=== PATIENT | male | born 1950 | race Caucasian/White ===

== ENCOUNTER 2016-08-26 08:30 | Day surgery (SDC) | payer OTHER ==
[~2016-08-26 08:30] MED LIST: DIPHENHYDRAMINE HCL 50 MG/ML VIAL ONE; EPINEPHRINE INJ 1 MG/10 ML DISP.SYRIN ONE; FLUMAZENIL INJ 0.5 MG/5 ML VIAL IV ONE; GLUCAGON,HUMAN RECOMB 1 MG INJ ONE; MIDAZOLAM 2 MG/2 ML INJ ONE; NALOXONE HCL INJ/PF 0.4 MG/1 ML SDV ONE; ONDANSETRON HCL INJ/PF 4 MG/2 ML SDV ONE; PROMETHAZINE HCL INJ 25 MG/1 ML VIAL ONE
[2016-08-26] MEDS: FENTANYL CITRATE INJ/PF 100 MCG/2 ML AMPUL ONE ×2 (09:07→09:09)
--- NOTE | 2016-08-26 09:14 | Operative Report ---
Operative Report DATE OF SURGERY: 08/26/16 Operative Report: The risks benefits and alternatives of the procedure explained to the patient in detail and informed consent is obtained that GIF Olympus video scope was inserted into the patient's mouth and hypopharynx the esophagus is identified intubated and insufflated the scope was then advanced through the esophagus stomach and duodenum retroflexion maneuver is done the esophagus stomach and first and second portions of the duodenum examined PREOPERATIVE DIAGNOSIS: Epigastric pain POSTOPERATIVE DIAGNOSIS: Gastritis. Duodenitis OPERATION: EGD with biopsy SURGEON: AL NICHOLAS ANESTHESIA: Moderate Sedation - 2 mg of Versed, 75 g of fentanyl. TISSUE REMOVED OR ALTERED: Gastric specimens obtained rule out Helicobacter pylori COMPLICATIONS: None. ESTIMATED BLOOD LOSS: none. INTRAOPERATIVE FINDINGS: Normal esophagus. Gastritis. Duodenitis PROCEDURE: Patient tolerated the procedure well. No immediate postprocedure complications are noted. Patient is discharged in good condition. Discharge date 08/26/2016. Discharge diet: Regular. Discharge activity: Regular. Patient has a 2-3 week follow-up to discuss findings. Patient is instructed to go to emergency room should there be any further problems or questions. We'll await on biopsies and treat if necessary
[2016-08-26 10:17] VITALS: BP 100/70
== END 2016-08-26 10:20 | disposition home or self-care (01) ==
LOC: END 08:30
PROVIDERS: ATTEND Internal Medicine Gastroenterology
PROC: 0DB68ZX Excision of Stomach, Via Natural or Artificial Opening Endoscopic, Diagnostic (ICD-10-PCS; principal; 2016-08-26 09:00)
DX: K31.9 Disease of stomach and duodenum, unspecified (principal); Z79.899 Other long term (current) drug therapy; Z79.51 Long term (current) use of inhaled steroids; Z88.0 Allergy status to penicillin; Z88.7 Allergy status to serum and vaccine
CPT/HCPCS: 43239; 88342 ×2; 88305 ×2; J2250; J3010; J0171; J1200; J1610; J2310; J2405; J2550; J3490

== ENCOUNTER 2016-12-22 06:47 | Day surgery (SDC) | payer OTHER, MEDICAID ==
[~2016-12-22 06:47] MED LIST changes: +ALBUTEROL SULFATE 0.083% NEB 2.5 MG/3 ML AMPUL NEB PRN; -DIPHENHYDRAMINE HCL 50 MG/ML VIAL ONE; -EPINEPHRINE INJ 1 MG/10 ML DISP.SYRIN ONE; -FLUMAZENIL INJ 0.5 MG/5 ML VIAL IV ONE; -GLUCAGON,HUMAN RECOMB 1 MG INJ ONE; +LIDOCAINE 4% INJ/PF (40 MG/ML) 5 ML AMPUL NEB PRN; -MIDAZOLAM 2 MG/2 ML INJ ONE; -NALOXONE HCL INJ/PF 0.4 MG/1 ML SDV ONE; +NORMAL SALINE 1000 ML 1,000 ML IV PRN; -ONDANSETRON HCL INJ/PF 4 MG/2 ML SDV ONE; -PROMETHAZINE HCL INJ 25 MG/1 ML VIAL ONE
[2016-12-22 07:17] LABS: ABSOLUTE BASOPHILS # (AUTO) 0.1 10^3/uL (0.0-0.2); ABSOLUTE EOSINOPHILS # (AUTO) 0.4 10^3/uL (0.0-0.6); ABSOLUTE LYMPHOCYTES (AUTO) 4.6 10^3/uL (0.5-4.7); ABSOLUTE MONOCYTES (AUTO) 0.7 10^3/uL (0.1-1.4); ABSOLUTE NEUT (AUTO) 4.1 10^3/uL (1.7-8.2); BASOPHILS % (AUTO) 0.7 % (0-2); EOSINOPHILS % (AUTO) 3.8 % (0-6); HEMATOCRIT 42.7 % (37.9-51.0); HEMOGLOBIN 14.3 g/dL (13.5-17.0); HGB HCT DIFFERENCE 0.2; LYMPHOCYTES % (AUTO) 46.4 % (13-45); MEAN CORPUSCULAR HEMOGLOBIN 31.7 pg (27.0-33.4); MEAN CORPUSCULAR HGB CONC 33.5 g/dL (32.0-36.0); MEAN CORPUSCULAR VOLUME 95 fl (80-97); MONOCYTES % (AUTO) 7.5 % (3-13); RED BLOOD COUNT 4.51 10^6/uL (4.35-5.55); RED CELL DISTRIBUTION WIDTH 13.6 % (11.5-14.0); SEGMENTED NEUTROPHILS % (AUTO) 41.6 % (42-78); WHITE BLOOD COUNT 9.9 10^3/uL (4.0-10.5)
[2016-12-22 07:23] LABS: PARTIAL THROMBOPLASTIN TIME 29.6 SEC (23.5-35.8)
[2016-12-22 07:38] LABS: ANION GAP 13 (5-19); BLOOD UREA NITROGEN 22 mg/dL (7-20); CARBON DIOXIDE 23 mmol/L (22-30); CHLORIDE 110 mmol/L (98-107); CREATININE RESULT 0.77 mg/dL (0.52-1.25); GLUCOSE 110 mg/dL (75-110); SODIUM 146.3 mmol/L (137-145)
[2016-12-22] MEDS ORDERED: LIDOCAINE 2% INJ (20 MG/ML) 20 ML MDV ONE (08:37)
[2016-12-22] MEDS ORDERED: MIDAZOLAM 2 MG/2 ML INJ ONE (09:00)
[2016-12-22] MEDS ORDERED: FENTANYL CITRATE INJ/PF 100 MCG/2 ML AMPUL ONE ×2 (09:00)
[2016-12-22] MEDS ORDERED: ONDANSETRON HCL INJ/PF 4 MG/2 ML SDV ONE (09:00)
[2016-12-22] MEDS ORDERED: EPHEDRINE SULFATE INJ 50 MG/1 ML AMPULE ONE (09:00)
[2016-12-22] MEDS ORDERED: PROPOFOL INJ 200 MG/20 ML VIAL IV ONE (09:00)
--- NOTE | 2016-12-22 11:01 | Operative Report ---
Operative Report DATE OF SURGERY: 12/22/16 Operative Report: patient NPO 12 hrs prior to procedure preop area iv established ,consents reviewed.bronchoscopy suite intubated per anesthesia T sized Olympic scopeno abnormalities of distal trachea,raymond,R main stem ,RULof the lung ,bronchus intermedius,RMLof the lung and RLL of the lung,Sub-mucosal swelling in L Main stem posteriorly as well as the AUGIE of the lung.Lingula and L lower lobe of the lung.Bronchoalveolar lavage and needle biopsy of L U lobe of the lung.Transbronchial biopsy under fluoroscopy L lower lobe of the lung.Patient tolerated procedure well SAO2 95% CXR pending PREOPERATIVE DIAGNOSIS: l lung mass POSTOPERATIVE DIAGNOSIS: same OPERATION: fiberoptic bronchoscopy/bronchoalveolar lavage/transbronchial biopsy/ Shah needle biopsy SURGEON: HAROLDO BAÑUELOS ANESTHESIA: GA TISSUE REMOVED OR ALTERED: AUGIE LAVAGE. AUGIE Shha Needle. LLL transbronchial biopsy COMPLICATIONS: none ESTIMATED BLOOD LOSS: 0 ml INTRAOPERATIVE FINDINGS: submucosal swelling AUGIE,corrugated mucosa
[2016-12-22] MEDS ORDERED: MEPERIDINE HCL/PF INJ 25 MG/1 ML DISP.SYRIN IV PRN (11:24)
[2016-12-22] MEDS ORDERED: FENTANYL CITRATE INJ/PF 100 MCG/2 ML AMPUL IV PRN ×3 (11:24)
[2016-12-22] MEDS ORDERED: PROMETHAZINE HCL INJ 25 MG/1 ML VIAL IV PRN (11:24)
[2016-12-22] MEDS ORDERED: DIPHENHYDRAMINE HCL 50 MG/ML VIAL IV PRN (11:24)
[2016-12-22 12:43] LABS: FLUID APPEARANCE TURBID; FLUID TYPE BRONCHIAL WASH
[2016-12-22 12:44] LABS: FLUID RBC DILUENT USED SALINE; FLUID RBC DILUTION FACTOR 51; FLUID RBC SIDE 1 216; FLUID RBC SIDE 2 204; TOTAL RBC SQUARES COUNTED FLD 25
[2016-12-22] MEDS ORDERED: NEOSTIGMINE METHYLSULFATE 10 MG/10 ML VIAL ONE (13:20)
[2016-12-22] MEDS ORDERED: SUCCINYLCHOLINE CHLORIDE INJ 200 MG/10 ML VIAL ONE (13:20)
[2016-12-22] MEDS ORDERED: GLYCOPYRROLATE INJ 0.4 MG/2 ML VIAL ONE (13:20)
[2016-12-22] MEDS ORDERED: ROCURONIUM BROMIDE INJ 50 MG/5 ML VIAL IV ONE (13:20)
[2016-12-22 13:39] VITALS: BP 96/61
[2016-12-22] MEDS ORDERED: ACETAMINOPHEN 325 MG TABLET PO SCH (14:00)
== END 2016-12-22 13:20 | disposition home or self-care (01) ==
LOC: OROUT 06:47
PROVIDERS: ATTEND Internal Medicine Pulmonary Disease
PROC: 0BBJ8ZX Excision of Left Lower Lung Lobe, Via Natural or Artificial Opening Endoscopic, Diagnostic (ICD-10-PCS; principal; 2016-12-22 09:15)
PROC: 0BBC8ZX Excision of Right Upper Lung Lobe, Via Natural or Artificial Opening Endoscopic, Diagnostic (ICD-10-PCS; 2016-12-22 09:15)
DX: R91.1 Solitary pulmonary nodule (principal); J44.9 Chronic obstructive pulmonary disease, unspecified; F17.210 Nicotine dependence, cigarettes, uncomplicated; Z79.899 Other long term (current) drug therapy; Z79.51 Long term (current) use of inhaled steroids; Z88.0 Allergy status to penicillin; Z88.7 Allergy status to serum and vaccine
CPT/HCPCS: 31628; 31629; 31624; 36415; 87070; 87205; 87206; 87116; 87101; 85025; 85610; 85730; 89050; 80048; 87015; 88162; 88305 ×2; 71010; 94640; J2250; J3490; J3010; J0330; J2405; J2704; 520

== ENCOUNTER → 2017-04-26 | Outpatient (CLI) | payer MEDICARE, MEDICAID ==
[2017-04-26 09:52] LABS: ABSOLUTE EOSINOPHILS # (AUTO) 0.4 10^3/uL (0.0-0.6); ABSOLUTE LYMPHOCYTES (AUTO) 3.1 10^3/uL (0.5-4.7); ABSOLUTE MONOCYTES (AUTO) 0.6 10^3/uL (0.1-1.4); BASOPHILS % (AUTO) 0.6 % (0-2); EOSINOPHILS % (AUTO) 5.3 % (0-6); HEMATOCRIT 44.3 % (37.9-51.0); HEMOGLOBIN 15.1 g/dL (13.5-17.0); LYMPHOCYTES % (AUTO) 43.5 % (13-45); MEAN CORPUSCULAR HEMOGLOBIN 32.7 pg (27.0-33.4); MEAN CORPUSCULAR HGB CONC 34.1 g/dL (32.0-36.0); MEAN CORPUSCULAR VOLUME 96 fl (80-97); MONOCYTES % (AUTO) 8.3 % (3-13); RED BLOOD COUNT 4.62 10^6/uL (4.35-5.55); RED CELL DISTRIBUTION WIDTH 13.4 % (11.5-14.0); SEGMENTED NEUTROPHILS % (AUTO) 42.3 % (42-78); WHITE BLOOD COUNT 7.2 10^3/uL (4.0-10.5)
[2017-04-26 10:25] LABS: ALANINE AMINOTRANSFERASE 37 U/L (21-72); ALKALINE PHOSPHATASE 126 U/L (38-126); ANION GAP 10 (5-19); ASPARTATE AMINO TRANSFERASE 23 U/L (17-59); BILIRUBIN,DIRECT 0.4 mg/dL (0.0-0.4); BILIRUBIN,TOTAL 0.4 mg/dL (0.2-1.3); BLOOD UREA NITROGEN 20 mg/dL (7-20); CALCIUM 9.6 mg/dL (8.4-10.2); CARBON DIOXIDE 25 mmol/L (22-30); CHLORIDE 108 mmol/L (98-107); CHOLESTEROL 280.34 mg/dL (0-200); CREATININE RESULT 0.86 mg/dL (0.52-1.25); Direct HDL 60 mg/dL (>40); GLUCOSE 106 mg/dL (75-110); POTASSIUM 4.4 mmol/L (3.6-5.0); SODIUM 143.2 mmol/L (137-145); TOTAL PROTEIN 7.1 g/dL (6.3-8.2); TRIGLYCERIDES 202 mg/dL (<150)
[2017-04-26 10:36] LABS: DIRECT LDL 185 mg/dL (<100)
[2017-04-26 10:40] LABS: VALPROIC ACID < 10.0 ug/mL (50.0-120.0); VLDL CHOLESTEROL 40.4 mg/dL (10-31)
[2017-04-27 15:38] LABS: A/G RATIO 1.3 (0.7-1.7); ALBUMIN 2 3.8 g/dL (2.9-4.4); ALPHA-1-GLOBULIN 2 0.1 g/dL (0.0-0.4); GAMMA GLOBULIN 0.8 g/dL (0.4-1.8); PROTEIN TOTAL SERUM 6.8 g/dL (6.0-8.5)
== END ==
LOC: OD 08:19
PROVIDERS: ATTEND Family Medicine Geriatric Medicine
DX: K21.9 Gastro-esophageal reflux disease without esophagitis (principal); R63.4 Abnormal weight loss; G43.909 Migraine, unspecified, not intractable, without status migrainosus; J44.9 Chronic obstructive pulmonary disease, unspecified; E78.5 Hyperlipidemia, unspecified; Z79.899 Other long term (current) drug therapy
CPT/HCPCS: 36415; 80053; 80061; 80164; 84165; 84443; 85025

== ENCOUNTER 2017-05-03 07:18 | Day surgery (SDC) | payer MEDICARE, MEDICAID ==
[2017-04-26 09:54] LABS: HEMATOCRIT 44.3 % (37.9-51.0); HEMOGLOBIN 15.1 g/dL (13.5-17.0); MEAN CORPUSCULAR HEMOGLOBIN 32.7 pg (27.0-33.4); MEAN CORPUSCULAR HGB CONC 34.1 g/dL (32.0-36.0); MEAN CORPUSCULAR VOLUME 96 fl (80-97); RED BLOOD COUNT 4.62 10^6/uL (4.35-5.55); RED CELL DISTRIBUTION WIDTH 13.4 % (11.5-14.0); WHITE BLOOD COUNT 7.2 10^3/uL (4.0-10.5)
[2017-04-26 09:58] LABS: PROTHROMBIN TIME 12.3 SEC (11.4-15.4)
[2017-04-26 09:59] LABS: PARTIAL THROMBOPLASTIN TIME 28.8 SEC (23.5-35.8)
[2017-04-26 10:57] LABS: ANION GAP 10 (5-19); BLOOD UREA NITROGEN 20 mg/dL (7-20); CALCIUM 9.6 mg/dL (8.4-10.2); CARBON DIOXIDE 25 mmol/L (22-30); CHLORIDE 108 mmol/L (98-107); CREATININE RESULT 0.86 mg/dL (0.52-1.25); GLUCOSE 106 mg/dL (75-110); POTASSIUM 4.4 mmol/L (3.6-5.0); SODIUM 143.2 mmol/L (137-145)
--- NOTE | 2017-04-26 19:54 | EKG REPORT ---
SEVERITY:- OTHERWISE NORMAL ECG - SINUS RHYTHM LOW VOLTAGE IN FRONTAL LEADS : Confirmed by: Darío Edmonds MD 26-Apr-2017 19:53:23
[~2017-05-03 07:18] MED LIST changes: -ALBUTEROL SULFATE 0.083% NEB 2.5 MG/3 ML AMPUL NEB PRN; +BUPIVACAINE HCL 0.5%-EPI 1:200000 INJ/PF 30 ML VIAL ONE; +LACTATED RINGERS 1000 ML IV PRN; +LIDOCAINE 0.5% INJ-PF (5 MG/ML) 50 ML SDV SUBCUT PRN; -LIDOCAINE 4% INJ/PF (40 MG/ML) 5 ML AMPUL NEB PRN; +METRONIDAZOLE 500 MG/NS RTU 100 ML IV PRN; -NORMAL SALINE 1000 ML 1,000 ML IV PRN
[2017-05-03] MEDS ORDERED: BUPIVACAINE INJ/PF LIPOSOME/PF 266 MG/20 ML SDV ONE (07:19)
[2017-05-03] MEDS ORDERED: FENTANYL CITRATE INJ/PF 100 MCG/2 ML AMPUL ONE (09:03)
[2017-05-03] MEDS ORDERED: MIDAZOLAM 2 MG/2 ML INJ ONE (09:04)
[2017-05-03] MEDS ORDERED: MORPHINE SULFATE 10 MG/ML INJ ONE (09:04)
[2017-05-03] MEDS ORDERED: PROPOFOL INJ 200 MG/20 ML VIAL IV ONE (09:04)
[2017-05-03] MEDS ORDERED: MORPHINE SULFATE 10 MG/ML INJ IV PRN (09:50)
[2017-05-03] MEDS ORDERED: MEPERIDINE HCL/PF INJ 25 MG/1 ML DISP.SYRIN IV PRN (09:50)
[2017-05-03] MEDS ORDERED: DIPHENHYDRAMINE HCL 50 MG/ML VIAL IV PRN (09:50)
[2017-05-03] MEDS ORDERED: FENTANYL CITRATE INJ/PF 100 MCG/2 ML AMPUL IV PRN ×3 (09:50)
[2017-05-03] MEDS ORDERED: PROMETHAZINE HCL INJ 25 MG/1 ML VIAL IV PRN ×2 (09:50)
[2017-05-03] MEDS ORDERED: BACITRACIN ZINC OINTMENT 15 GM ONE (09:51)
[2017-05-03] MEDS ORDERED: OXYCODONE-ACETAMINOPHEN 5-325 MG TABLET PO PRN (10:11)
--- NOTE | 2017-05-03 10:11 | PDOC DISCHARGE SUMMARY ---
Discharge Summary (SDC) - Discharge Final Diagnosis: hemorrhoids Date of Surgery: 05/03/17 Discharge Date: 05/03/17 Condition: Stable Treatment or Instructions: [facility] [address] [place] [id number] Hemorrhoid or Anal Surgery Discharge Instructions 1. General Information: a. DO NOT DRIVE a car or operate dangerous machinery for 4-7 days or while taking narcotic prescription pain pills. b. DO NOT consume alcohol, tranquilizers, sleeping medications or any non- prescribed medications for 24 hours unless approved by your doctor or as long as taking narcotic prescription medications. c. DO NOT make important decisions or sign any important papers for the next 24 hours. d. Have a responsible person with you tonight. 2. Activity Restrictions:4 weeks. a. Avoid heavy lifting or straining until you feel more comfortable. b. It is fine to go for walks, up and down steps, ride in a car. 3. Treatment: a. Tomorrow morning begin warm water sitz baths (soaks) with plain water. You may do 3-4 times per day or after bowel movements to help relieve spasm and pain. Place a dry gauze or panty liner over the sight to catch drainage and blood to help keep your clothing dry. b. You may use Tucks or other medicated wipes to help clean the area as needed. c. If packing used it will pass spontaneously with bowel function. External dressings and medicated gauze should be removed before sitz baths. 4. Medications: a. You may take the narcotic prescription tablets for pain one tablet every 6 hours. (_Toradol__). b. Stop the narcotic when able since you cannot take it and drive and they cause constipation. You may switch to plain Tylenol, Advil or Aleve as you transition from the narcotic. Many adults find good pain relief with Advil 600- 800 mg three times a day with meals for short courses. This can cause indigestion, ulcers, and kidney problems with long-term use. c. Resume all normal medications unless a change is specified by your doctors. d. Stool softeners are encouraged to help you for 2-4 weeks to maintain a soft stool and avoid more painful bowel movements due to pain medication. Colace is often used. e. A numbing cream may be prescribed, this can be applied after sitz baths around the perianal area before the sight is covered with a gauze pad. f. Constipation is very common after anal surgery and you may take over-the- counter medications to help stimulate the bowel such as Milk of Magnesia, Senokot tablets, prune juice and drink plenty of water. 5. Diet: a. Begin with clear liquids and if you do well you may then advance to normal foods low in fat and protein at first. Smaller portion size may be laurent the first night. b. Acidic (orange juice, tomato), foods high in ruffage (grapes, celery, asparagus) and spicy foods should be avoided for comfort the first 2-3 weeks since they can cause more burning sensation with bowel movements. 6..Follow Up Care: a. Please call the office to schedule a follow up appointment with your doctor for 2 weeks. In the event of any postoperative problems or questions or you may call the office during business hours or the On-Call physician evenings and weekends at [facility]. [facility] [phone] I understand the instructions for my postoperative care as described above and a copy has been given to me. Patient/Significant Other Witness Date Prescriptions: Ketorolac Tromethamine [Toradol 10 mg Tablet] 10 mg PO Q6HP PRN #20 tablet PRN Reason: Referrals: LUÍS WATERMAN MD [Primary Care Provider] - Discharge Activity: No Lifting Over 10 Pounds, No Lifting/Push/Pulling Report the Following to Your Physician Immediately: Increase in Pain, Fever over 101 Degrees, Drainage-Foul Smelling
[2017-05-03] MEDS ORDERED: ONDANSETRON HCL INJ/PF 4 MG/2 ML SDV IV PRN (10:12)
--- NOTE | 2017-05-03 10:16 | Operative Report ---
Operative Report DATE OF SURGERY: 05/03/17 PREOPERATIVE DIAGNOSIS: External hemorrhoids left lateral and left posterior positions POSTOPERATIVE DIAGNOSIS: Same OPERATION: 1. Examination under anesthesia. 2. Incisional hemorrhoidectomy left lateral and posterior positions 2 SURGEON: EL FELDER 1ST CONVEYOR TENDER: URBAN HARRISON ANESTHESIA: GA TISSUE REMOVED OR ALTERED: 2 hemorrhoids submitted in one container COMPLICATIONS: None ESTIMATED BLOOD LOSS: Minimal INTRAOPERATIVE FINDINGS: See below PROCEDURE: The patient was taken from the preop holding area the main operating where general anesthesia was induced. Patient was placed in the prone jackknife position buttocks spread taped widely and exposed for optimal access to the anus. Surgical plan surgical timeout were conducted. The findings were significant for prolapsing external hemorrhoid left lateral position, smaller hemorrhoid in the center posterior position. Scarring right lateral and anterior positions consistent with previous hemorrhoidectomy Perianal tissue was any symptoms with quarter percent Marcaine plain anal rectal canal dilated up nicely to except to adult fingers. Visualization of the anal canal revealed some stool which was evacuated. The findings were consistent with the large prolapsing external hemorrhoid in the left lateral position. No other pathology seen. We approached the patient's left lateral hemorrhoidectomy first. Closing suture of 4-0 chromic was placed at the apex of the hemorrhoid. The hemorrhoid was excised in elliptical fashion using a 15 blade, and Metzenbaum scissors taken the level of dissection down to the external anal sphincter. Adjacent venous plexus removed all with the single specimen. The hemorrhoid was passed off to pathology. The defect in the mucosa and the anoderm closed in 1 continuous running, locking suture. We now called our attention to the posterior hemorrhoid which was removed in identical fashion. It was much smaller than the lateral hemorrhoid. Once this was completed but specimen sent to pathology in one container labeled hemorrhoids. We inspected for bleeding there was none. We are very satisfied with the closure of both hemorrhoidectomy sites as there was no evidence of stenosis. Gelfoam plug was placed in the anal canal with lidocaine jelly. 20 cc of full-strength Exparel injected into the perianal tissue. Postop procedure well, extubated and taken recovery room in stable condition. The physician assistant baseball coach, Ms. Chapa, provided assistance during this case by: Assisting with retracting tissue, instillation of local anesthesia and closure of skin incisions.
[2017-05-03] MEDS ORDERED: ONDANSETRON HCL INJ/PF 4 MG/2 ML SDV ONE (10:34)
[2017-05-03] MEDS ORDERED: PROMETHAZINE HCL INJ 25 MG/1 ML VIAL ONE (10:41)
[2017-05-03 12:36] VITALS: BP 103/71
[2017-05-03] MEDS ORDERED: SUCCINYLCHOLINE CHLORIDE INJ 200 MG/10 ML VIAL ONE (15:32)
== END 2017-05-03 12:30 | disposition home or self-care (01) ==
LOC: OROUT 07:18
PROVIDERS: ATTEND Surgery
PROC: 06BY0ZC Excision of Hemorrhoidal Plexus, Open Approach (ICD-10-PCS; principal; 2017-05-03 09:30)
DX: K64.4 Residual hemorrhoidal skin tags (principal); F17.210 Nicotine dependence, cigarettes, uncomplicated; F10.20 Alcohol dependence, uncomplicated; G89.29 Other chronic pain; J44.9 Chronic obstructive pulmonary disease, unspecified; M19.90 Unspecified osteoarthritis, unspecified site; F32.9 Major depressive disorder, single episode, unspecified; R91.1 Solitary pulmonary nodule; G43.909 Migraine, unspecified, not intractable, without status migrainosus; Z88.0 Allergy status to penicillin; Z79.899 Other long term (current) drug therapy; Z79.1 Long term (current) use of non-steroidal anti-inflammatories (NSAID); Z79.82 Long term (current) use of aspirin; Z88.7 Allergy status to serum and vaccine; Z79.51 Long term (current) use of inhaled steroids
CPT/HCPCS: 93005; 36415; 85027; 85610; 85730; 80048; 88304 ×2; 93010; 46250; J2250; J3490; J3010; J2270; J2550; J0330; J2405; J2704; C9290; 902

== ENCOUNTER → 2017-06-02 | Outpatient (CLI) | payer MEDICARE, MEDICAID ==
[2017-06-02 11:20] LABS: ALANINE AMINOTRANSFERASE 45 U/L (21-72); ASPARTATE AMINO TRANSFERASE 27 U/L (17-59); CHOLESTEROL 220.26 mg/dL (0-200); Direct HDL 60 mg/dL (>40); TRIGLYCERIDES 210 mg/dL (<150)
[2017-06-02 11:31] LABS: DIRECT LDL 128 mg/dL (<100)
== END ==
LOC: OD 10:09
PROVIDERS: ATTEND Family Medicine Geriatric Medicine
DX: E78.5 Hyperlipidemia, unspecified (principal); Z79.899 Other long term (current) drug therapy
CPT/HCPCS: 36415; 80061; 84450; 84460

== ENCOUNTER → 2017-10-03 | Outpatient (CLI) | payer MEDICARE, MEDICAID ==
--- NOTE | 2017-10-03 13:35 | RADIOLOGY REPORT (SQ) ---
EXAM DESCRIPTION: U/S ABDOMEN COMPLETE W/O DOP COMPLETED DATE/TIME: 10/03/2017 11:52 am REASON FOR STUDY: UPPER ABD PAIN (R10.10), TOBACCO USE (Z72.0) R10.10 UPPER ABDOMINAL PAIN, UNSPECI FIED COMPARISON: None. TECHNIQUE: Dynamic and static grayscale images acquired of the abdomen and recorded on PACS. Additio nal selected color Doppler and spectral images recorded. LIMITATIONS: None. FINDINGS: PANCREAS: No masses. Visualized pancreatic duct normal caliber. LIVER: Upper limits normal. 18.2 cm. Fatty infiltration. No solid masses. To large simple hepatic cysts. 7 and 10 cm. LIVER VASCULATURE: Normal directional flow of the main portal vein and hepatic veins. GALLBLADDER: No stones. Normal wall thickness. No pericholecystic fluid. ULTRASOUND-DETECTED OLMOS'S SIGN: Negative. INTRAHEPATIC DUCTS AND COMMON DUCT: CBD and intrahepatic ducts normal caliber. No filling defects. INFERIOR VENA CAVA: Normal flow. AORTA: No aneurysm. RIGHT KIDNEY: Normal size. Normal echogenicity. No solid or suspicious masses. No hydronephros is. No calcifications. At least 2 simple cortical cysts. Largest 4.8 cm. LEFT KIDNEY: Normal size. Normal echogenicity. No solid or suspicious masses. No hydronephrosi s. No calcifications. Simple cortical cyst SPLEEN: Not visualized PERITONEAL AND PLEURAL SPACES: No ascites or effusions. OTHER: No other significant finding. IMPRESSION: Fatty infiltration of the liver. 2 large hepatic cysts. Benign renal cysts. Spleen no t visualized. TECHNICAL DOCUMENTATION: JOB ID: [id number] [employer]- All Rights Reserved
== END ==
LOC: RAD 10:37
PROVIDERS: ATTEND Family Medicine Geriatric Medicine
DX: R10.10 Upper abdominal pain, unspecified (principal); Z72.0 Tobacco use; K76.0 Fatty (change of) liver, not elsewhere classified; N28.1 Cyst of kidney, acquired; K76.89 Other specified diseases of liver
CPT/HCPCS: 76700

== ENCOUNTER → 2017-10-06 | Outpatient (CLI) | payer MEDICARE, MEDICAID ==
[2017-10-06 10:06] LABS: ALANINE AMINOTRANSFERASE 27 U/L (21-72); AMYLASE 41 U/L (30-110); ASPARTATE AMINO TRANSFERASE 20 U/L (17-59); CHOLESTEROL 257.25 mg/dL (0-200); LIPASE 49.9 U/L (23-300); TRIGLYCERIDES 264 mg/dL (<150)
[2017-10-06 10:18] LABS: DIRECT LDL 159 mg/dL (<100)
[2017-10-06 10:22] LABS: VLDL CHOLESTEROL 52.8 mg/dL (10-31)
== END ==
LOC: OD 08:45
PROVIDERS: ATTEND Family Medicine Geriatric Medicine
DX: E78.5 Hyperlipidemia, unspecified (principal); R10.10 Upper abdominal pain, unspecified; Z79.899 Other long term (current) drug therapy
CPT/HCPCS: 36415; 80061; 82150; 83690; 84450; 84460

== ENCOUNTER → 2017-10-10 | Outpatient (CLI) | payer MEDICARE, MEDICAID ==
--- NOTE | 2017-10-10 08:34 | RADIOLOGY REPORT (SQ) ---
EXAM DESCRIPTION: CT CHEST WITHOUT COMPLETED DATE/TIME: 10/10/2017 7:49 am REASON FOR STUDY: COUGH (R05), OTHER NONSPECIFIC ABN FINDING OF LUNG FIELD (R91.8) R91.8 OTHER NONS PECIFIC ABNORMAL FINDING OF LUNG FIELD R05 COUGH COMPARISON: None. TECHNIQUE: CT scan performed of the chest without intravenous contrast. Images reviewed with lung, soft tissue and bone windows. Reconstructed coronal and sagittal MPR images reviewed. All images st ored on PACS. All CT scanners at this facility use dose modulation, iterative reconstruction, and/or weight based d osing when appropriate to reduce radiation dose to as low as reasonably achievable (ALARA). [facility]: Dose Right [facility]: CareDose [facility]: Dose Right [facility]: Teradose 4D [facility]: [employer] RADIATION DOSE: CT Rad equipment meets quality standard of care and radiation dose reduction techniq ues were employed. CTDIvol: 9.2 mGy. DLP: 418 mGy-cm. mGy. LIMITATIONS: No technical limitations. FINDINGS: LUNGS AND PLEURA: There is evidence of a large cyst or bulla of the right lower lobe with adjacent compression of the right middle lobe with right middle lobe discoid atelectasis and atelecta sis within the adjacent right lower lobe. The cyst measures 19.7 cm in AP diameter x 12.1 cm in heig ht x12.4 cm in transverse diameter. HILAR AND MEDIASTINAL STRUCTURES: No mediastinal or hilar adenopathy. . HEART AND VASCULAR STRUCTURES: There is a ectasia of the ascending thoracic aorta measuring 4.1 x 4.1 cm. The descending thoracic aorta measures 3.1 x 3.1 cm. UPPER ABDOMEN: There are multiple hepatic cysts of the liver the largest measuring 11.9 x 8.7 cm with in the left lobe of the liver. Prominent parapelvic cyst of the left kidney. Cortical cysts of the left kidney. THYROID AND OTHER SOFT TISSUES: No masses. No adenopathy. BONES: No significant finding. HARDWARE: None in the chest. OTHER: No other significant findings. IMPRESSION: 1. Evidence of a large cyst right lower lobe with compressive atelectasis of right midd le lobe and right lower lobe. The possibility of new meta seal or bulla must be considered. 2 .Mult iple hepatic cyst. TECHNICAL DOCUMENTATION: JOB ID: [id number] [facility] [id number] Quality ID # [id number]: Final reports with documentation of one or more dose reduction techniques (e.g., Au tomated exposure control, adjustment of the mA and/or kV according to patient size, use of iterative reconstruction technique) 2010 [employer]- All Rights Reserved
--- NOTE | 2017-10-10 11:22 | ST Modified Barium Swallow ---
Recommendation - Recommendations Recommendations: Recommend liquid wash with solids to manage residue. Other swallow function WFL. Medical Diagnoses - Medical Diagnoses Medical Diagnosis Description & ICD-10 Code(s): [id number], R91.8-nonspecific ABN finding of lung field, R13.10-dysphagia Other Medical Diagnoses/Co-Morbidities: patient reports chronic back and shoulder pain and headaches ST Modified Barium Swallow - General Date: 10/10/17 Referring Physician: Dr. Caba Risks/Precautions: None Reason for Referral: coughing with foods - History History obtained from: Patient -: Medical - The patient arrived independently for this procedure, completed CT prior to MBSS. Patient reports first noticing some difficulty with swallowing after a bronchoscopy, but feels that it is getting better recently. Reports that he would occasionally feel a small piece of food in his throat, and had "coughing fits" which would eventually expel food. Again, states this is happening less often. The patient does report having chronic back and shoulder pain, for which he receives physical therapy. The patient also reports recently coughing cause significant pain on his lower right side. The patient also has a cough that is not associated with eating or drinking. The patient states he coughs frequently "because I smoke". Medications: Per patient verbally reports: omeprazole, amitriptyline, tizanidine , low blood pressure medication, valium, flexeril, percocet Allergies: tetanus vaccines and toxoid, penicillins - Functional Status Prior Functional Status: INDEPENDENT: feeding - independent Current Functional Limitations: feeding - intermittent difficulty - Subjective Patient/caregiver goal(s): r/o aspiration Cognitive-Linguistic Function: Functional Speech Intelligibility: WNL Current Nutritional Means: PO Current PO diet: Regular Current symptoms: Coughing Pain: Patient reports, 2/5 - headache - Objective Assessment: Upright, Left Lateral - Food Trials Used Food trials used: Thin liquids, Pureed, Regular The patient: Was Able to Self Feed - Oral-Motor Skills Dentition: Edentulous Laryngeal Function: Volitional Cough - wfl, Volitional Swallow - wfl - Assessment Oral prep: Normal Labial closure: Adequate Leakage: None Mastication: Lengthy - complaint of dry mouth Lingual Movement: Normal Oral stage: Piecemeal Deglutition - Pharyngeal Stage Initiation of Pharyngeal Stage Reflex: Delayed Reflex Delay Time (Seconds): 3 - with solids Decreased laryngeal elevation: No Reduced Velopharyngeal Closure: no Reduced pressure generation: Yes reduced tongue-based retraction: No Pre-swallow pooling in valleculae: Moderate Pre-Swallow pooling in pyriforms: None Reduced Thyro-Hyoid approximation: Yes - mild Reduced epiglottic excursion: No Reduced pharyngeal peristalsis/contraction: No Multiple Swallows with: Cleared w/ Liquid Assist Post-swallow residulas vallecular: Moderate Post-Swallow residuals in pyriforms: Mild Pharyngeal Stage Comments: Patient exhibited intermittent penetration of thin liquids, however, functional swallow for liquids still seen. Some increased residue seen in pharynx with solids. Additional dry swallows did not resolve residue, liquid wash cleared pharynx. - Esophageal Stage Cricopharyngeal Function: Normal - Fall Risk Assessment Medications/Conditions that increase fall risks include: Antidepressants, sedatives, anti-arrhythmic, diuretic, benzodiazipenes, neuroleptics. BP regulation problems, cardiac problems, balance or gait deficits, neurological problems. Fall Risk Actions Taken: No action needed - Behavioral Observations During evaluation process patient: was cooperative, able to answer questions, provided medical history - Treatment / Educational Needs: Treatment/Education Needs: Treatment consisted of patient education on the role of the Speech Pathologist. Patient's plan of care and golas were communicated as well as scheduling and attendance policies. Recommendations for initial home program were shared. Patient demonstrated understanding and verbalized agreement. - Impression/Summary Laryngeal Penetration: Yes, Flash, during swallow Consistency: Thin Tracheal Aspiration: no Compesatory strategies: liquid wash Patient presents with: Pharyngeal stage dysph., Mild-Moderate Risk of Aspiration: Minimal Risk of nutritional compromise: WNL Evaluation and Findings: Patient presents with overall functional swallow. Mild deficits seen characterized by intermittent penetration of thin liquids, and residue of solids. Solid residue was seen to clear with liquid wash. - Recommendations Solid diet recommendations: Regular Liquid Diet Modification: Thin Pt/Family education and followup with MD: Yes Dysphagia therapy with [employer] MEDICINE PRACTITIONER: no Recommended techniques: Fully Upright During Meal, Small Bites and Sips, Alternate Bites/Sips Information, Precautions and Recommendations: Patient (Written), Patient (Verbal ) - Time Total Time: 20 - Plan of Care Patient to follow-up with referring physician: Yes Strategies to optimize patient understanding include:: ongoing assessment of educational needs, implementation of educational strategies, and re-education. - - -: Thank you for the opportunity to work with this patient and his/her family. Should you have any questions about this patient's plan or progress, I can be reached at [phone]. Charge G Code? - - -: Yes ST [facility] Impairment Category - Rationale Based On Rationale Based On: Clin Find., Obj Measures - Swallowing Current G8996: CI 1-19% Impaired Goal G8997: CI 1-19% Impaired Discharge G8998: CI 1-19% Impaired
--- NOTE | 2017-10-10 17:18 | RADIOLOGY REPORT (SQ) ---
EXAM DESCRIPTION: COOKIE SWALLOW COMPLETED DATE/TIME: 10/10/2017 8:33 am REASON FOR STUDY: COUGH (R05), OTHER NONSPECIFIC ABN FINDING OF LUNG FIELD (R91.8) R91.8 OTHER NONS PECIFIC ABNORMAL FINDING OF LUNG FIELD R05 COUGH COMPARISON: None. TECHNIQUE: Videofluoroscopic swallowing examination was performed in conjunction with speech patholo gy. Videofluoroscopic imaging was obtained and reviewed and these are the findings: RADIATION DOSE: Fluoro time 2.29 minutes 1 images saved to PACS. LIMITATIONS: None FINDINGS: The patient was brought into the fluoro room and placed upright on a modified barium swall ow chair. The patient was then given multiple consistencies mixed with barium to swallow under live fluoroscopic video guidance. According to the Speech Pathologist there was flash laryngeal penetrati on without aspiration seen with thin barium. All other consistencies were swallowed without incident . Please refer to the speech pathology report for further details. IMPRESSION: FLASH LARYNGEAL PENETRATION WITHOUT ASPIRATION SEEN WITH THIN BARIUM.PLEASE SEE SPEECH P ATHOLOGIST REPORT FOR OTHER FINDINGS AND RECOMMENDATIONS. COMMENT: NONE Quality ID 145: Final reports for procedures using fluoroscopy that document radiation exposure chely nasir, or exposure time and number of fluorographic images (if radiation exposure indices are not avail able) TECHNICAL DOCUMENTATION: JOB ID: [id number] [employer]- All Rights Reserved
== END ==
LOC: RAD 07:26
PROVIDERS: ATTEND Internal Medicine Pulmonary Disease
DX: R91.8 Other nonspecific abnormal finding of lung field (principal); R05 Cough; R13.10 Dysphagia, unspecified
CPT/HCPCS: 74230; 71250; 92611; G8996; G8997; G8998

== ENCOUNTER → 2017-11-09 | Outpatient (CLI) | payer MEDICARE, MEDICAID ==
--- NOTE | 2017-11-09 08:24 | RADIOLOGY REPORT (SQ) ---
EXAM DESCRIPTION: CT ABD/PELVIS WITH IV ORAL COMPLETED DATE/TIME: 11/09/2017 8:01 am REASON FOR STUDY: EPIGASTRIC PAIN (R10.13), ABD TENDERNESS-EPIGASTRIC (R10.816 R10.13 EPIGASTRIC PA IN R10.816 EPIGASTRIC ABDOMINAL TENDERNESS COMPARISON: CT chest 10/10/2017 TECHNIQUE: CT scan of the abdomen and pelvis performed using helical scanning technique with dynamic intravenous contrast injection. Patient drank oral contrast. Images reviewed with lung, soft tissue , and bone windows. Reconstructed coronal and sagittal MPR images reviewed. Delayed images for evalua tion of the urinary system also acquired. All images stored on PACS. All CT scanners at this facility use dose modulation, iterative reconstruction, and/or weight based d osing when appropriate to reduce radiation dose to as low as reasonably achievable (ALARA). [facility]: Dose Right [facility]: CareDose [facility]: Dose Right [facility]: Teradose 4D [facility]: [employer] CONTRAST TYPE AND DOSE: contrast/concentration: Isovue 370.00 mg/ml; Total Contrast Delivered: 91.0 ml; Total Saline Delivered: 70.0 ml RENAL FUNCTION: Creatinine 1.0 RADIATION DOSE: CT Rad equipment meets quality standard of care and radiation dose reduction techniq ues were employed. CTDIvol: 10.9 - 12.4 mGy. DLP: 1152 mGy-cm.. LIMITATIONS: None. FINDINGS: LOWER CHEST: Advanced obstructive lung disease at both lung bases. LIVER: Normal size. No masses. No dilated ducts. Multiple benign hepatic cysts are present, a 12 cm cyst is seen in the left lobe liver anteriorly. SPLEEN: Normal size. No focal lesions. PANCREAS: No masses. No significant calcifications. No adjacent inflammation or peripancreatic fluid collections. Pancreatic duct not dilated. GALLBLADDER: No identified stones by CT criteria. No inflammatory changes to suggest cholecystitis. ADRENAL GLANDS: No significant masses or asymmetry. RIGHT KIDNEY AND URETER: No solid masses. 3.2 cm cyst right lower pole kidney. No significant calci fications. No hydronephrosis or hydroureter. LEFT KIDNEY AND URETER: No solid masses. Multiple left renal cortical cysts, the largest is 6 cm in diameter in the upper pole left kidney. No significant calcifications. No hydronephrosis or hydrou reter. AORTA AND VESSELS: No aneurysm. No dissection. Renal arteries, SMA, celiac without stenosis. RETROPERITONEUM: No retroperitoneal adenopathy, hemorrhage or masses. BOWEL AND PERITONEAL CAVITY: No masses or inflammatory changes. No free fluid or peritoneal masses. Patient drank oral contrast. No CT evidence of bowel obstruction. APPENDIX: No inflammatory changes. There is oral contrast in the appendix, suggesting against append icitis. Appendix at the upper limits of normal for size, 10 mm in diameter PELVIS: No mass. No free fluid. Normal bladder. ABDOMINAL WALL: No masses. Fat containing left inguinal hernia. BONES: Degenerative changes L5-S1. OTHER: No other significant finding. IMPRESSION: 12 mm hepatic cyst in the midline left lobe liver. Otherwise unremarkable study TECHNICAL DOCUMENTATION: JOB ID: [id number] Quality ID # [id number]: Final reports with documentation of one or more dose reduction techniques (e.g., Au tomated exposure control, adjustment of the mA and/or kV according to patient size, use of iterative reconstruction technique) 2010 [employer]- All Rights Reserved Reading location - IP/workstation name: [email or web address]
== END ==
LOC: RAD 07:14
PROVIDERS: ATTEND Internal Medicine Gastroenterology
DX: R10.13 Epigastric pain (principal); Q61.02 Congenital multiple renal cysts; K76.89 Other specified diseases of liver
CPT/HCPCS: 74177; 82565

== ENCOUNTER → 2017-12-04 | Outpatient (CLI) | payer MEDICARE, MEDICAID ==
[2017-12-04 10:02] LABS: ALANINE AMINOTRANSFERASE 48 U/L (21-72); ASPARTATE AMINO TRANSFERASE 28 U/L (17-59); TRIGLYCERIDES 173 mg/dL (<150)
[2017-12-04 10:14] LABS: DIRECT LDL 68 mg/dL (<100)
[2017-12-04 10:18] LABS: VLDL CHOLESTEROL 34.6 mg/dL (10-31)
== END ==
LOC: OD 08:38
PROVIDERS: ATTEND Family Medicine Geriatric Medicine
DX: K76.89 Other specified diseases of liver (principal); E78.5 Hyperlipidemia, unspecified; Z29.9 Encounter for prophylactic measures, unspecified; Z79.899 Other long term (current) drug therapy
CPT/HCPCS: 36415; 80061; 84450; 84460

== ENCOUNTER → 2018-01-03 | Outpatient (CLI) | payer MEDICARE, MEDICAID ==
[~2018-01-03] MED LIST changes: +ALBUTEROL SULFATE 0.083% NEB 2.5 MG/3 ML AMPUL NEB ONE; -BUPIVACAINE HCL 0.5%-EPI 1:200000 INJ/PF 30 ML VIAL ONE; -LACTATED RINGERS 1000 ML IV PRN; -LIDOCAINE 0.5% INJ-PF (5 MG/ML) 50 ML SDV SUBCUT PRN; -METRONIDAZOLE 500 MG/NS RTU 100 ML IV PRN
--- NOTE | 2018-01-04 08:54 | PULMONARY FUNCTION TEST ---
DATE OF SERVICE: 01/03/2018 THE VITAL CAPACITY IS NORMAL. THE EXPIRATORY FLOW RATES ARE SEVERELY DECREASED. THE FEV1/VC IS 40%, PREDICTED: 78% LUNG VOLUMES BY NITROGEN WASH OUT METHOD SHOW: TLC IS 89% OF PREDICTED FRC IS 89% OF PREDICTED RV IS 75% OF PREDICTED THE DLCO IS 15.3, 65% OF PREDICTED. THE RV/TLC RATIO IS 31% PREDICTED 39% AFTER BRONCHODILATOR, EXPIRATORY FLOW RATES SHOW SIGNIFICANT IMPROVEMENT. IMPRESSION: GOOD PATIENT EFFORT. SEVERE OBSTRUCTIVE DEFECT. EXPIRATORY FLOW RATES IMPROVE SIGNIFICANTLY AFTER BRONCHODILATOR. LUNG VOLUMES ARE NORMAL. DIFFUSING CAPACITY IS MODERATELY DECREASED. CC: ABHIJIT BOWENS MD > HERACLIO
== END ==
LOC: RT 13:04
PROVIDERS: ATTEND Surgery
DX: J43.9 Emphysema, unspecified (principal)
CPT/HCPCS: 94729 ×2; 94727 ×2; 94060 ×2; A9270

== ENCOUNTER → 2018-06-01 | Outpatient (CLI) | payer MEDICARE, MEDICAID ==
[2018-06-01 10:45] LABS: ABSOLUTE EOSINOPHILS # (AUTO) 0.4 10^3/uL (0.0-0.6); ABSOLUTE LYMPHOCYTES (AUTO) 3.1 10^3/uL (0.5-4.7); ABSOLUTE MONOCYTES (AUTO) 0.6 10^3/uL (0.1-1.4); ABSOLUTE NEUT (AUTO) 4.1 10^3/uL (1.7-8.2); BASOPHILS % (AUTO) 0.5 % (0-2); EOSINOPHILS % (AUTO) 4.4 % (0-6); HEMATOCRIT 40.8 % (37.9-51.0); HEMOGLOBIN 14.2 g/dL (13.5-17.0); LYMPHOCYTES % (AUTO) 37.7 % (13-45); MEAN CORPUSCULAR HEMOGLOBIN 32.2 pg (27.0-33.4); MEAN CORPUSCULAR HGB CONC 34.8 g/dL (32.0-36.0); MEAN CORPUSCULAR VOLUME 93 fl (80-97); MONOCYTES % (AUTO) 7.5 % (3-13); PLATELET COUNT 294 10^3/uL (150-450); RED BLOOD COUNT 4.41 10^6/uL (4.35-5.55); SEGMENTED NEUTROPHILS % (AUTO) 49.9 % (42-78); TOTAL CELLS COUNTED % (AUTO) 100 %; WHITE BLOOD COUNT 8.2 10^3/uL (4.0-10.5)
[2018-06-01 11:28] LABS: TRIGLYCERIDES 284 mg/dL (<150); URIC ACID 6.3 mg/dL (3.5-8.5)
[2018-06-01 11:29] LABS: ALANINE AMINOTRANSFERASE 46 U/L (21-72); ALBUMIN 3.8 g/dL (3.5-5.0); ALKALINE PHOSPHATASE 103 U/L (38-126); ANION GAP 7 (5-19); ASPARTATE AMINO TRANSFERASE 35 U/L (17-59); BILIRUBIN,DIRECT 0.3 mg/dL (0.0-0.4); BILIRUBIN,TOTAL 0.5 mg/dL (0.2-1.3); BLOOD UREA NITROGEN 15 mg/dL (7-20); CALCIUM 9.2 mg/dL (8.4-10.2); CARBON DIOXIDE 27 mmol/L (22-30); CHLORIDE 106 mmol/L (98-107); GLUCOSE 110 mg/dL (75-110); POTASSIUM 4.3 mmol/L (3.6-5.0); SODIUM 140.2 mmol/L (137-145); TOTAL PROTEIN 6.9 g/dL (6.3-8.2)
[2018-06-01 11:39] LABS: DIRECT LDL 166 mg/dL (<100)
[2018-06-01 11:46] LABS: VLDL CHOLESTEROL 56.8 mg/dL (10-31)
== END ==
LOC: OD 09:41
PROVIDERS: ATTEND Family Medicine Geriatric Medicine
DX: J44.9 Chronic obstructive pulmonary disease, unspecified (principal); E78.5 Hyperlipidemia, unspecified; R60.0 Localized edema; M25.579 Pain in unspecified ankle and joints of unspecified foot
CPT/HCPCS: 36415; 80053; 80061; 84550; 85025

== ENCOUNTER 2018-08-05 11:48 | Observation (INO) | payer MEDICARE, MEDICAID ==
[2018-08-05 12:10] LABS: ABSOLUTE BASOPHILS # (AUTO) 0.1 10^3/uL (0.0-0.2); ABSOLUTE EOSINOPHILS # (AUTO) 0.3 10^3/uL (0.0-0.6); ABSOLUTE LYMPHOCYTES (AUTO) 3.7 10^3/uL (0.5-4.7); ABSOLUTE MONOCYTES (AUTO) 1.1 10^3/uL (0.1-1.4); ABSOLUTE NEUT (AUTO) 6.9 10^3/uL (1.7-8.2); BASOPHILS % (AUTO) 0.9 % (0-2); EOSINOPHILS % (AUTO) 2.3 % (0-6); HEMATOCRIT 41.8 % (37.9-51.0); HEMOGLOBIN 14.2 g/dL (13.5-17.0); LYMPHOCYTES % (AUTO) 30.8 % (13-45); MEAN CORPUSCULAR HEMOGLOBIN 31.7 pg (27.0-33.4); MEAN CORPUSCULAR VOLUME 93 fl (80-97); PLATELET COUNT 377 10^3/uL (150-450); RED BLOOD COUNT 4.48 10^6/uL (4.35-5.55); RED CELL DISTRIBUTION WIDTH 14.2 % (11.5-14.0); TOTAL CELLS COUNTED % (AUTO) 100 %; WHITE BLOOD COUNT 12.1 10^3/uL (4.0-10.5)
--- NOTE | 2018-08-05 12:16 | ER Document Report ---
ED General - General Chief Complaint: Chest Pain Stated Complaint: CHEST PAIN Time Seen by Provider: 08/05/18 11:56 TRAVEL OUTSIDE OF THE [place] IN LAST 30 DAYS: No - HPI Notes: Patient is a 67-year-old male that presents to the emergency department for chief complaint of chest pain. Patient reports yesterday he had sudden onset of a pain in his chest. The pain started centrally and radiates underneath his left and right rib cage. He states he went to bed last night and when he woke up this morning the pain was more severe. The pain is not radiating straight into his back. He reports some lightheadedness but denies any syncope. He denies any dyspnea and palpitations. He states he has no history of cardiac disease and has never been told he had a AAA in the past. He denies ever receiving a cardiac stress test. Patient received 325 mg of aspirin and 1 sublingual nitro by EMS prior to arrival and he reports no change in his symptoms. He has not taken any medication at home for the symptoms. He is on 3 L nasal cannula oxygen at home for COPD Past Medical History: COPD Past Surgical History: Reviewed in chart Social History: Tobacco. Denies drugs and alcohol Family History: Reviewed and noncontributory for presenting illness Allergies: Reviewed, see documented allergy list. REVIEW OF SYSTEMS: CONSTITUTIONAL : No fever No chills No diaphoresis No recent illness EENT: No vision changes No congestion No sore throat CARDIOVASCULAR: chest pain No palpitations RESPIRATORY: No shortness of breath No cough No difficulty breathing GASTROINTESTINAL: abdominal pain No nausea No vomiting No diarrhea GENITOURINARY: No dysuria No hematuria No difficulty urinating MUSCULOSKELETAL: back pain No leg pain No arm pain SKIN: No rashes No lesions LYMPHATIC: No swollen, enlarged glands. NEUROLOGICAL: No lightheadedness No headache No weakness No paresthesias PSYCHIATRIC: No anxiety No depression PHYSICAL EXAMINATION: Vital signs reviewed, nursing noted reviewed. GENERAL: Well-appearing, well-nourished and in no acute distress. HEAD: Atraumatic, normocephalic. EYES: Eyes appear normal, extraocular movements intact, sclera anicteric, conjunctiva are normal. ENT: nares patent, oropharynx clear without exudates. Moist mucous membranes. NECK: Normal range of motion, supple without lymphadenopathy LUNGS: Breath sounds clear to auscultation bilaterally and equal. No wheezes rales or rhonchi. HEART: Regular rate and rhythm without murmurs ABDOMEN: Soft, epigastric and periumbilical tenderness, normoactive bowel sounds. No rebound, guarding, or rigidity. No masses appreciated. EXTREMITIES: Nontender, good range of motion, no pitting or edema. NEUROLOGICAL: No focal neurological deficits. Moves all extremities spontaneously Motor and sensory grossly intact on exam. PSYCH: Normal mood, normal affect. SKIN: Warm, Dry, normal turgor, no rashes or lesions noted on exposed skin - Related Data Allergies/Adverse Reactions: Tetanus Vaccines and Toxoid [Tetanus Vaccines & Toxoid] Allergy (Severe, Verified 08/26/16 08:26) "PASSED OUT" UNSURE OF REACTION Penicillins Allergy (Intermediate, Verified 08/26/16 08:26) Hallucinations Past Medical History - Social History Smoking Status: Current Every Day Smoker Family History: Reviewed & Not Pertinent Patient has suicidal ideation: No Patient has homicidal ideation: No - Past Medical History Cardiac Medical History: Denies: Hx Coronary Artery Disease, Hx Heart Attack Comment Only: Hx Hypertension - HYPOTENSION Pulmonary Medical History: Reports: Hx COPD - SMOKER, Hx Pneumonia - WALKING Denies: Hx Asthma, Hx Bronchitis Neurological Medical History: Denies: Hx Cerebrovascular Accident, Hx Seizures Renal/ Medical History: Denies: Hx Peritoneal Dialysis Musculoskeletal Medical History: Reports Hx Arthritis - Immunizations Hx Diphtheria, Pertussis, Tetanus Vaccination: No Physical Exam - Vital signs Vitals: Temp Pulse Resp BP 97.5 F 98 16 107/80 08/05/18 12:00 08/05/18 12:00 08/05/18 12:00 08/05/18 12:00 Course - Re-evaluation Re-evalutation: 08/05/18 12:16 Vitals reviewed. Nursing notes reviewed. 08/05/18 14:04 Patient reevaluated. Workup is unremarkable. EKG shows no acute changes. Patient's pain has improved while in the emergency room. He did receive a dose of morphine for further pain management. Patient's heart score is 5 and he will be admitted the hospital for telemetry monitoring and further cardiac evaluation. Case discussed with Dr. Guevara who accepted admission. Patient in agreement with this plan. Laboratory 08/05/18 08/05/18 08/05/18 11:35 11:35 11:35 WBC 12.1 H RBC 4.48 Hgb 14.2 Hct 41.8 MCV 93 MCH 31.7 MCHC 34.0 RDW 14.2 H Plt Count 377 Seg Neutrophils % 57.0 Lymphocytes % 30.8 Monocytes % 9.0 Eosinophils % 2.3 Basophils % 0.9 Absolute Neutrophils 6.9 Absolute Lymphocytes 3.7 Absolute Monocytes 1.1 Absolute Eosinophils 0.3 Absolute Basophils 0.1 Sodium Cancelled Potassium Cancelled Chloride Cancelled Carbon Dioxide Cancelled Anion Gap Cancelled BUN Cancelled Creatinine Cancelled Est GFR ( Amer) Cancelled Est GFR (Non-Af Amer) Cancelled Glucose Cancelled Calcium Cancelled Total Bilirubin Direct Bilirubin Neonat Total Bilirubin Neonat Direct Bilirubin Neonat Indirect Bili AST ALT Alkaline Phosphatase Troponin I Cancelled Total Protein Albumin Lipase 08/05/18 08/05/18 12:26 12:26 WBC RBC Hgb Hct MCV MCH MCHC RDW Plt Count Seg Neutrophils % Lymphocytes % Monocytes % Eosinophils % Basophils % Absolute Neutrophils Absolute Lymphocytes Absolute Monocytes Absolute Eosinophils Absolute Basophils Sodium 139.8 Potassium 4.0 Chloride 108 H Carbon Dioxide 26 Anion Gap 6 BUN 13 Creatinine 0.82 Est GFR ( Amer) > 60 Est GFR (Non-Af Amer) > 60 Glucose 139 H Calcium 9.0 Total Bilirubin 0.3 Direct Bilirubin 0.2 Neonat Total Bilirubin Not Reportable Neonat Direct Bilirubin Not Reportable Neonat Indirect Bili Not Reportable AST 18 ALT 21 Alkaline Phosphatase 121 Troponin I < 0.012 Total Protein 6.2 L Albumin 3.4 L Lipase 42.3 Chest X-Ray 08/05/18 11:56 IMPRESSION: COPD. NO ACUTE RADIOGRAPHIC FINDING IN THE CHEST. Abdomen/Pelvis CTA 08/05/18 12:13 IMPRESSION: 1. No thoracic or abdominopelvic aortic pathology. 2. No acute abnormality detected. Findings as above. Chest/Abdomen CTA 08/05/18 12:13 IMPRESSION: 1. No thoracic or abdominopelvic aortic pathology. 2. No acute abnormality detected. Findings as above. - Vital Signs Vital signs: Temp Pulse Resp BP Pulse Ox 97.5 F 98 16 107/80 08/05/18 12:00 08/05/18 12:00 08/05/18 12:00 08/05/18 12:00 - Laboratory Result Diagrams: 08/05/18 11:35 08/05/18 12:26 Laboratory results interpreted by me: 08/05/18 08/05/18 11:35 12:26 WBC 12.1 H RDW 14.2 H Chloride 108 H Glucose 139 H Total Protein 6.2 L Albumin 3.4 L - EKG Interpretation by Me Additional EKG results interpreted by me: 08/05/18 14:01 Interpreted by myself 08/22/2002: Normal sinus rhythm, rate 97, left anterior fascicular block, normal axis, no ectopy, no significant change from 04/26/17 Discharge - Discharge Clinical Impression: Chest pain Qualifiers: Chest pain type: unspecified Qualified Code(s): R07.9 - Chest pain, unspecified Condition: Stable Disposition: ADMITTED OBSERVATION Admitting Provider: Hospitalist Unit Admitted: Telemetry Referrals: LUÍS WATERMAN MD [Primary Care Provider] - Follow up as needed
[2018-08-05 12:45] LABS: ALANINE AMINOTRANSFERASE 21 U/L (21-72); ALBUMIN 3.4 g/dL (3.5-5.0); ALKALINE PHOSPHATASE 121 U/L (38-126); ANION GAP 6 (5-19); ASPARTATE AMINO TRANSFERASE 18 U/L (17-59); BILIRUBIN,DIRECT 0.2 mg/dL (0.0-0.4); BILIRUBIN,TOTAL 0.3 mg/dL (0.2-1.3); BLOOD UREA NITROGEN 13 mg/dL (7-20); CARBON DIOXIDE 26 mmol/L (22-30); CHLORIDE 108 mmol/L (98-107); GLUCOSE 139 mg/dL (75-110); LIPASE 42.3 U/L (23-300); SODIUM 139.8 mmol/L (137-145); TOTAL PROTEIN 6.2 g/dL (6.3-8.2)
--- NOTE | 2018-08-05 13:03 | RADIOLOGY REPORT (SQ) ---
EXAM DESCRIPTION: CHEST SINGLE VIEW COMPLETED DATE/TIME: 08/05/2018 12:39 pm REASON FOR STUDY: chest pain COMPARISON: None. NUMBER OF VIEWS: One view. TECHNIQUE: Single frontal radiographic view of the chest acquired. LIMITATIONS: None. FINDINGS: LUNGS AND PLEURA: Linear scarring in the lung bases. No evidence of pulmonary edema or pn eumonia. No pleural effusion. Attenuated blood vessels and flattened russell-diaphragms. MEDIASTINUM AND HILAR STRUCTURES: No masses. Contour normal. HEART AND VASCULAR STRUCTURES: Heart normal in size. Normal vasculature. BONES: No acute findings. HARDWARE: None in the chest. OTHER: No other significant finding. IMPRESSION: COPD. NO ACUTE RADIOGRAPHIC FINDING IN THE CHEST. TECHNICAL DOCUMENTATION: JOB ID: [id number] [employer]- All Rights Reserved Reading location - IP/workstation name: [email or web address]
--- NOTE | 2018-08-05 13:03 | RADIOLOGY REPORT (SQ) ---
EXAM DESCRIPTION: CTA ABDOMEN/PELVIS W WO; CTA CHEST COMPLETED DATE/TIME: 08/05/2018 12:48 pm REASON FOR STUDY: dissection, cp, back pain COMPARISON: None. TECHNIQUE: CT scan of the chest, abdomen and pelvis performed using helical scanning technique with dynamic intravenous contrast injection. Images reviewed with lung, soft tissue and bone windows. Re constructed coronal and sagittal MPR images reviewed. Additional 3 dimensional post-processing performed to develop Maximal Intensity Projection images (MO P). All images stored on PACS. All CT scanners at this facility use dose modulation, iterative reconstruction, and/or weight based d osing when appropriate to reduce radiation dose to as low as reasonably achievable (ALARA). [facility]: Dose Right [facility]: CareDose [facility]: Dose Right [facility]: Teradose 4D [facility]: Cellufun CONTRAST TYPE AND DOSE: contrast/concentration: Isovue 350.00 mg/ml; Total Contrast Delivered: 100.0 ml; Total Saline Delivered: 90.0 ml Contrast bolus optimized for the aorta. RENAL FUNCTION: GFR > 60. RADIATION DOSE: CT Rad equipment meets quality standard of care and radiation dose reduction techniq ues were employed. CTDIvol: 13.4 - 18.1 mGy. DLP: 1963 mGy-cm. . LIMITATIONS: None. FINDINGS: Chest No evidence of aortic aneurysm or dissection. Patent great vessel origins. No central pulmonary emb olus. Cardiomegaly without pericardial effusion. No mediastinal mass or adenopathy. COPD, scar. Osteopenic. Bones intact. Soft tissues unremarkable. Abdomen/pelvis Normal caliber aorta with patent major arterial and venous structures. Numerous liver cysts. Renal cysts. No renal obstruction. Solid organs and gallbladder otherwise no rmal. No bowel or appendix pathology. No ascites or abnormal gas. No fracture or bone lesion lumbar spondylosis. 3D MIPS: Confirm above findings. OTHER: No other significant finding. IMPRESSION: 1. No thoracic or abdominopelvic aortic pathology. 2. No acute abnormality detected. Findings as above. COMMENT: Quality ID # [id number]: Final reports with documentation of one or more dose reduction techniques (e.g., Automated exposure control, adjustment of the mA and/or kV according to patient size, use of iterative reconstruction technique) TECHNICAL DOCUMENTATION: JOB ID: [id number] [employer]- All Rights Reserved Reading location - IP/workstation name: [email or web address]
--- NOTE | 2018-08-05 13:03 | RADIOLOGY REPORT (SQ) ---
EXAM DESCRIPTION: CTA ABDOMEN/PELVIS W WO; CTA CHEST COMPLETED DATE/TIME: 08/05/2018 12:48 pm REASON FOR STUDY: dissection, cp, back pain COMPARISON: None. TECHNIQUE: CT scan of the chest, abdomen and pelvis performed using helical scanning technique with dynamic intravenous contrast injection. Images reviewed with lung, soft tissue and bone windows. Re constructed coronal and sagittal MPR images reviewed. Additional 3 dimensional post-processing performed to develop Maximal Intensity Projection images (MT P). All images stored on PACS. All CT scanners at this facility use dose modulation, iterative reconstruction, and/or weight based d osing when appropriate to reduce radiation dose to as low as reasonably achievable (ALARA). [facility]: Dose Right [facility]: CareDose [facility]: Dose Right [facility]: Teradose 4D [facility]: Renovagen CONTRAST TYPE AND DOSE: contrast/concentration: Isovue 350.00 mg/ml; Total Contrast Delivered: 100.0 ml; Total Saline Delivered: 90.0 ml Contrast bolus optimized for the aorta. RENAL FUNCTION: GFR > 60. RADIATION DOSE: CT Rad equipment meets quality standard of care and radiation dose reduction techniq ues were employed. CTDIvol: 13.4 - 18.1 mGy. DLP: 1963 mGy-cm. . LIMITATIONS: None. FINDINGS: Chest No evidence of aortic aneurysm or dissection. Patent great vessel origins. No central pulmonary emb olus. Cardiomegaly without pericardial effusion. No mediastinal mass or adenopathy. COPD, scar. Osteopenic. Bones intact. Soft tissues unremarkable. Abdomen/pelvis Normal caliber aorta with patent major arterial and venous structures. Numerous liver cysts. Renal cysts. No renal obstruction. Solid organs and gallbladder otherwise no rmal. No bowel or appendix pathology. No ascites or abnormal gas. No fracture or bone lesion lumbar spondylosis. 3D MIPS: Confirm above findings. OTHER: No other significant finding. IMPRESSION: 1. No thoracic or abdominopelvic aortic pathology. 2. No acute abnormality detected. Findings as above. COMMENT: Quality ID # [id number]: Final reports with documentation of one or more dose reduction techniques (e.g., Automated exposure control, adjustment of the mA and/or kV according to patient size, use of iterative reconstruction technique) TECHNICAL DOCUMENTATION: JOB ID: [id number] [employer]- All Rights Reserved Reading location - IP/workstation name: [email or web address]
[2018-08-05] MEDS ORDERED: MORPHINE SULFATE 10 MG/ML INJ IV ONE (14:01)
[2018-08-05] MEDS ORDERED: ONDANSETRON HCL INJ/PF 4 MG/2 ML SDV IV PRN (14:25)
[2018-08-05] MEDS ORDERED: TEMAZEPAM 7.5 MG CAPSULE PO PRN (14:25)
[2018-08-05] MEDS ORDERED: ACETAMINOPHEN 325 MG TABLET PO PRN (14:25)
[2018-08-05] MEDS ORDERED: NITROGLYCERIN 0.4 MG/TAB 25 TAB/BOTTLE SL PRN (14:37)
[2018-08-05] MEDS ORDERED: MORPHINE SULFATE 10 MG/ML INJ IV PRN (14:37)
[2018-08-05 15:12] LABS: CHOLESTEROL 113.87 mg/dL (0-200); TRIGLYCERIDES 104 mg/dL (<150)
[2018-08-05 15:24] LABS: DIRECT LDL 57 mg/dL (<100)
[2018-08-05] MEDS ORDERED: ALBUTEROL SULFATE HFA (90 MCG/PUFF) 8 GM MDI (1 MDI/ER DISP) IH PRN (15:24)
[2018-08-05] MEDS ORDERED: ALBUTEROL SULFATE HFA (90 MCG/PUFF) 200 PUFF/8.5 GM MDI IH PRN (15:46)
--- NOTE | 2018-08-05 15:48 | PDOC H&P ---
History of Present Illness Admission Date/PCP: 08/05/18 14:12 LUÍS WATERMAN MD Patient complains of: Upper abdominal pain History of Present Illness: JOLENE BOCANEGRA is a 67 year old male presents to the emergency room due to acute onset upper abdominal pain, aching in character, mild to moderate in severity, started last night while patient sitting in bed playing video games. Pain referred to his left upper quadrant when he came to the emergency room today because he was getting tests and was moved around. Currently pain is improved after receiving morphine. He burped once and felt nauseous once. He had a bowel movement today but he did not look what color it was. He has no diarrhea. He has no shortness of breath, palpitations, diaphoresis, dizziness or lightheadedness. Past Medical History Cardiac Medical History: Comment Only: Hypertension - HYPOTENSION Pulmonary Medical History: Reports: Chronic Obstructive Pulmonary Disease (COPD ) - SMOKER, Pneumonia - WALKING GI Medical History: Reports: Peptic Ulcer Disease Musculoskeltal Medical History: Reports: Arthritis Psychiatric Medical History: Reports: Depression, General Anxiety Disorder Past Surgical History Past Surgical History: Reports: Other - Hemorrhoidectomy Social History Smoking Status: Current Every Day Smoker - Advance Directive Resuscitation Status: Full Code Family History Family History: Hypertension Parental Family History Reviewed: Yes Children Family History Reviewed: Yes Sibling(s) Family History Reviewed.: Yes Medication/Allergy Home Medications: Amitriptyline HCl [Elavil 50 Mg Tablet] 50 mg PO QHS 04/20/17 Omeprazole 20 mg PO DAILY 04/20/17 Albuterol Sulfate [Ventolin Hfa 8 gm Mdi (1 Mdi/ER Disp)] 2 puff IH DAILYP PRN 08/05/18 Baclofen [Baclofen 10 mg Tablet] 10 mg PO QID 08/05/18 Budesonide/Formoterol Fumarate [Symbicort Hfa 160-4.5 Mcg Inhaler 6 gm] 2 puff IH DAILY 08/05/18 Cyanocobalamin (Vitamin B-12) [Vitamin B-12 1000 Mcg Tablet] 1,000 mcg PO DAILY 08/05/18 Fluoxetine HCl [Prozac] 40 mg PO DAILY 08/05/18 Gabapentin [Neurontin] 300 mg PO BID 08/05/18 Gabapentin [Neurontin] 600 mg PO QHS 08/05/18 Georgiana-3S/Dha/Epa/Fish Oil [Fish Oil Georgiana-3 Softgel] 1 each PO DAILY 08/05/18 Ranitidine HCl [Zantac 150 mg Tablet] 150 mg PO QHS 08/05/18 Rosuvastatin Calcium [Crestor 20 mg Tablet] 20 mg PO QHS 08/05/18 Tiotropium Winifred [Spiriva Respimat] 2 puff IH DAILY 08/05/18 Trazodone HCl [Desyrel] 150 mg PO QHS 08/05/18 Ubidecarenone [Co Q-10] 100 mg PO DAILY 08/05/18 Allergies/Adverse Reactions: Tetanus Vaccines and Toxoid [Tetanus Vaccines & Toxoid] Allergy (Severe, Verified 08/05/18 15:12) "PASSED OUT" UNSURE OF REACTION Penicillins Allergy (Intermediate, Verified 08/05/18 15:12) Hallucinations Review of Systems All systems: reviewed and no additional remarkable complaints except as stated Physical Exam Vital Signs: Temp Pulse Resp BP Pulse Ox 97.5 F 98 16 107/80 08/05/18 12:00 08/05/18 12:00 08/05/18 12:00 08/05/18 12:00 General appearance: PRESENT: no acute distress, cooperative Head exam: PRESENT: atraumatic, normocephalic Eye exam: PRESENT: EOMI. ABSENT: conjunctival injection Ear exam: ABSENT: bleeding, drainage Mouth exam: PRESENT: moist, neck supple Throat exam: ABSENT: post pharyngeal erythema, tonsillar erythema Neck exam: ABSENT: meningismus, tenderness, tracheostomy Respiratory exam: PRESENT: clear to auscultation erick. ABSENT: accessory muscle use Cardiovascular exam: PRESENT: RRR. ABSENT: diastolic murmur, systolic murmur Pulses: PRESENT: normal carotid pulses GI/Abdominal exam: PRESENT: distended, normal bowel sounds, tenderness. ABSENT : ascites Rectal exam: PRESENT: deferred Extremities exam: ABSENT: pedal edema, tenderness Musculoskeletal exam: ABSENT: deformity, dislocation, tenderness Neurological exam: PRESENT: alert, awake, oriented to person, oriented to place , oriented to time, oriented to situation Psychiatric exam: PRESENT: appropriate affect. ABSENT: agitated, anxious, homicidal ideation, suicidal ideation Focused psych exam: ABSENT: catatonic, delusional, euphoric Skin exam: ABSENT: abrasion, cyanosis Results Impressions: Chest X-Ray 08/05/18 11:56 IMPRESSION: COPD. NO ACUTE RADIOGRAPHIC FINDING IN THE CHEST. Abdomen/Pelvis CTA 08/05/18 12:13 IMPRESSION: 1. No thoracic or abdominopelvic aortic pathology. 2. No acute abnormality detected. Findings as above. Chest/Abdomen CTA 08/05/18 12:13 IMPRESSION: 1. No thoracic or abdominopelvic aortic pathology. 2. No acute abnormality detected. Findings as above. Assessment & Plan - Diagnosis (1) Abdominal pain Is this a current diagnosis for this admission?: Yes Plan: Likely peptic ulcer disease. Start IV Protonix 40 mg IV twice daily. Start Carafate 1 g [address] scan of the abdomen and pelvis reviewed. Morphine as needed. Start with clear liquid diet. (2) Chronic back pain Is this a current diagnosis for this admission?: Yes Plan: Continue chronic medications. (3) Anxiety and depression Is this a current diagnosis for this admission?: Yes Plan: Continue home meds. (4) COPD (chronic obstructive pulmonary disease) Is this a current diagnosis for this admission?: Yes Plan: Continue home medications (5) Orthostatic hypotension Is this a current diagnosis for this admission?: Yes Plan: Continue Florinef
[2018-08-05] MEDS: MORPHINE SULFATE 10 MG/ML INJ IV PRN ×2 (16:19→22:04)
[2018-08-05] MEDS ORDERED: (PENDING PHARMACY ID) (Gabapentin [Neurontin] 300 MG) PO SCH (18:00)
[2018-08-05] MEDS: BACLOFEN 10 MG TABLET PO SCH ×2 (18:11→21:56)
[2018-08-05] MEDS: PANTOPRAZOLE SODIUM 40 MG VIAL IV SCH (18:11)
[2018-08-05] MEDS: GABAPENTIN 300 MG CAPSULE PO SCH (18:11)
[2018-08-05] MEDS: SUCRALFATE SUSP 1 GM/10 ML UDCUP PO SCH (18:11)
[2018-08-05] MEDS ORDERED: TRAZODONE HCL 50 MG TABLET PO SCH (22:00)
[2018-08-05] MEDS ORDERED: (PENDING PHARMACY ID) (Rosuvastatin Calcium [Crestor 20 Mg Tablet] 20 MG) PO SCH (22:00)
[2018-08-05] MEDS ORDERED: (PENDING PHARMACY ID) (Trazodone Hcl [Desyrel] 150 MG) PO SCH (22:00)
[2018-08-05] MEDS ORDERED: ATORVASTATIN CALCIUM 40 MG TABLET PO SCH (22:00)
[2018-08-05] MEDS ORDERED: AMITRIPTYLINE HCL 50 MG TABLET PO SCH (22:00)
[2018-08-05] MEDS ORDERED: GABAPENTIN 300 MG CAPSULE PO SCH (22:00)
[2018-08-05] MEDS: FAMOTIDINE 20 MG TABLET PO SCH (22:09)
--- NOTE | 2018-08-06 00:57 | EKG REPORT ---
SEVERITY:- ABNORMAL ECG - SINUS RHYTHM LEFT ANTERIOR FASCICULAR BLOCK LOW VOLTAGE IN FRONTAL LEADS : Confirmed by: Mariola Jeronimo MD 06-Aug-2018 00:56:47
--- NOTE | 2018-08-06 00:57 | EKG REPORT ---
SEVERITY:- OTHERWISE NORMAL ECG - SINUS RHYTHM LOW VOLTAGE IN FRONTAL LEADS : Confirmed by: Mariola Jeronimo MD 06-Aug-2018 00:56:40
[2018-08-06] MEDS: SUCRALFATE SUSP 1 GM/10 ML UDCUP PO SCH ×3 (01:31→15:46)
[2018-08-06] MEDS: PANTOPRAZOLE SODIUM 40 MG VIAL IV SCH (06:02)
[2018-08-06] MEDS: GABAPENTIN 300 MG CAPSULE PO SCH (09:54)
[2018-08-06] MEDS ORDERED: (PENDING PHARMACY ID) (Ubidecarenone [Co Q-10] 100 MG) PO SCH (10:00)
[2018-08-06] MEDS ORDERED: (PENDING PHARMACY ID) (Tiotropium Bromide [Spiriva Respimat] 2 PUFF) IH SCH (10:00)
[2018-08-06] MEDS ORDERED: BUDESONIDE/FORMOTEROL 160-4.5 MCG 60 PUFF/6 GM MDI IH SCH (10:00)
[2018-08-06] MEDS ORDERED: FLUOXETINE HCL 20 MG CAPSULE PO SCH (10:00)
[2018-08-06] MEDS ORDERED: DHA PO SCH (10:00)
[2018-08-06] MEDS ORDERED: OMEGA-3 ACID ETHYL ESTERS 1 GM CAPSULE PO SCH (10:00)
[2018-08-06] MEDS ORDERED: OMEGA PO SCH (10:00)
[2018-08-06] MEDS ORDERED: CYANOCOBALAMIN (VITAMIN B-12) 1,000 MCG TABLET PO SCH (10:00)
[2018-08-06] MEDS ORDERED: ENOXAPARIN SODIUM INJ 40 MG/0.4 ML DISP.SYRIN SUBCUT SCH (10:00)
[2018-08-06] MEDS ORDERED: EPA PO SCH (10:00)
[2018-08-06] MEDS ORDERED: FISH OIL PO SCH (10:00)
[2018-08-06] MEDS: BACLOFEN 10 MG TABLET PO SCH ×2 (10:03→15:46)
[2018-08-06] MEDS: FAMOTIDINE 20 MG TABLET PO SCH (10:25)
--- NOTE | 2018-08-06 11:08 | PDOC DISCHARGE SUMMARY ---
General - Admit/Disc Date/PCP Admission Date/Primary Care Provider: 08/05/18 14:12 LUÍS WATERMAN MD Discharge Date: 08/06/18 - Discharge Diagnosis (1) Abdominal pain Is this a current diagnosis for this admission?: Yes (2) Chronic back pain Is this a current diagnosis for this admission?: Yes (3) Anxiety and depression Is this a current diagnosis for this admission?: Yes (4) COPD (chronic obstructive pulmonary disease) Is this a current diagnosis for this admission?: Yes (5) Orthostatic hypotension Is this a current diagnosis for this admission?: Yes - Additional Information Resuscitation Status: Full Code Discharge Diet: Regular Discharge Activity: Activity As Tolerated Prescriptions: Pantoprazole Sodium [Protonix] 40 mg PO BID #60 tablet. Sucralfate [Carafate 1 gm Tablet] 1 gm PO ACHS #60 tablet Home Medications: Amitriptyline HCl [Elavil 50 mg Tablet] 50 mg PO QHS 04/20/17 Albuterol Sulfate [Ventolin Hfa 8 gm Mdi (1 Mdi/ER Disp)] 2 puff IH DAILYP PRN 08/05/18 Baclofen [Baclofen 10 mg Tablet] 10 mg PO QID 08/05/18 Budesonide/Formoterol Fumarate [Symbicort HFA 160-4.5 mcg Inhaler 6 gm] 2 puff IH DAILY 08/05/18 Cyanocobalamin (Vitamin B-12) [Vitamin B-12 1000 mcg Tablet] 1,000 mcg PO DAILY 08/05/18 Fluoxetine HCl [Prozac] 40 mg PO DAILY 08/05/18 Gabapentin [Neurontin] 300 mg PO BID 08/05/18 Gabapentin [Neurontin] 600 mg PO QHS 08/05/18 [place]-3S/Dha/Epa/Fish Oil [Fish Oil [place]-3 Softgel] 1 each PO DAILY 08/05/18 Rosuvastatin Calcium [Crestor 20 mg Tablet] 20 mg PO QHS 08/05/18 Tiotropium [place] [Spiriva Respimat] 2 puff IH DAILY 08/05/18 Trazodone HCl [Desyrel] 150 mg PO QHS 08/05/18 Ubidecarenone [Co Q-10] 100 mg PO DAILY 08/05/18 Acetaminophen [Tylenol 325 mg Tablet] 650 mg PO Q4HP PRN tablet 08/06/18 Pantoprazole Sodium [Protonix] 40 mg PO BID #60 tablet. 08/06/18 Sucralfate [Carafate 1 gm Tablet] 1 gm PO ACHS #60 tablet 08/06/18 History of Present Illness History of Present Illness: JOLENE BOCANEGRA is a 67 year old male presents to the emergency room due to acute onset upper abdominal pain, aching in character, mild to moderate in severity, started last night while patient sitting in bed playing video games. Pain referred to his left upper quadrant when he came to the emergency room today because he was getting tests and was moved around. Currently pain is improved after receiving morphine. He burped once and felt nauseous once. He had a bowel movement today but he did not look what color it was. He has no diarrhea. He has no shortness of breath, palpitations, diaphoresis, dizziness or lightheadedness. Hospital Course Hospital Course: (1) Abdominal pain Likely peptic ulcer disease. Started IV Protonix 40 mg IV twice daily and Carafate 1 [address] scan of the abdomen and pelvis with no acute pathology. Patient received morphine as needed. Initially started with clear liquid diet, then diet advanced and he did very well. (2) Chronic back pain Continue chronic medications. (3) Anxiety and depression Continue home meds. (4) COPD (chronic obstructive pulmonary disease) Continue home medications (5) Orthostatic hypotension Continue [facility] Physical Exam Vital Signs: Temp Pulse Resp BP Pulse Ox 98.7 F 95 20 99/64 L 94 08/06/18 08:26 08/06/18 08:26 08/06/18 08:26 08/06/18 08:26 08/06/18 08:26 Intake & Output 08/05/18 08/06/18 08/07/18 06:59 06:59 06:59 Intake Total 600 Balance 600 Weight 153 lb 0.013 oz General appearance: PRESENT: no acute distress, cooperative Head exam: PRESENT: atraumatic, normocephalic Eye exam: PRESENT: EOMI Mouth exam: PRESENT: moist, neck supple Neck exam: ABSENT: meningismus, tenderness Respiratory exam: PRESENT: clear to auscultation erick. ABSENT: accessory muscle use Cardiovascular exam: PRESENT: RRR. ABSENT: diastolic murmur, systolic murmur Pulses: PRESENT: normal carotid pulses GI/Abdominal exam: PRESENT: normal bowel sounds, soft. ABSENT: ascites Rectal exam: PRESENT: deferred Neurological exam: PRESENT: alert, awake, oriented to person, oriented to place , oriented to time, oriented to situation Psychiatric exam: ABSENT: agitated, anxious Results Laboratory Results: 08/05/18 08/05/18 08/06/18 15:10 21:06 03:18 Troponin I < 0.012 < 0.012 < 0.012 Impressions: Chest X-Ray 08/05/18 11:56 IMPRESSION: COPD. NO ACUTE RADIOGRAPHIC FINDING IN THE CHEST. Abdomen/Pelvis CTA 08/05/18 12:13 IMPRESSION: 1. No thoracic or abdominopelvic aortic pathology. 2. No acute abnormality detected. Findings as above. Chest/Abdomen CTA 08/05/18 12:13 IMPRESSION: 1. No thoracic or abdominopelvic aortic pathology. 2. No acute abnormality detected. Findings as above. Qualifiers - * PATIENT BEING DISCHARGED WITH ANY OF THE FOLLOWING DIAGNOSIS: No
[2018-08-06 16:38] VITALS: BP 119/73
== END 2018-08-06 17:00 | disposition home or self-care (01) ==
LOC: ER 11:48 → EH 14:12 → 4S 15:48
PROVIDERS: ADMIT Internal Medicine; ATTEND Internal Medicine
DX: R10.12 Left upper quadrant pain (principal); G89.29 Other chronic pain; M54.9 Dorsalgia, unspecified; F41.1 Generalized anxiety disorder; F32.9 Major depressive disorder, single episode, unspecified; J44.9 Chronic obstructive pulmonary disease, unspecified; I95.1 Orthostatic hypotension; R11.0 Nausea; R14.2 Eructation; I44.4 Left anterior fascicular block; F17.200 Nicotine dependence, unspecified, uncomplicated; Z79.899 Other long term (current) drug therapy; Z87.11 Personal history of peptic ulcer disease; Z82.49 Family history of ischemic heart disease and other diseases of the circulatory system; Z99.81 Dependence on supplemental oxygen
CPT/HCPCS: 93005 ×2; 99285; 96374; 36415 ×2; 83690; 85025; 80053; 84484 ×2; 83036; 80061; 71045; 71275; 74174; 93010; A9270 ×10; J3490 ×3; J2270; J1650; C9113 ×2; S0164

== ENCOUNTER 2018-08-15 11:52 | Emergency (ER) | payer MEDICARE, MEDICAID ==
[2018-08-15] MEDS ORDERED: NORMAL SALINE 1000 ML 1,000 ML IV PRN (13:03)
--- NOTE | 2018-08-15 13:05 | ER Document Report ---
ED Medical Screen (RME) - General Chief Complaint: Epigastric Pain Stated Complaint: ABDOMINAL PAIN Time Seen by Provider: 08/15/18 12:58 Notes: 67-year-old male sent in from his primary care physician's office for dehydration. Patient states that he has had no appetite and has been eating and drinking very little over the past several days since being discharged from the hospital around the . Dr. Harrington sent him in today because he feels that he is dehydrated from acid reflux which is causing pain in his stomach so he sent him to the emergency department for IV fluids. Patient denies nausea or vomiting, simply states it hurts anytime he eats or swallows anything. Admits mild diarrhea, denies fevers, admits mild epigastric tenderness to palpation and pain. States he just recently had a chest pain rule out and was found to be negative. TRAVEL OUTSIDE OF THE [place] IN LAST 30 DAYS: No - Related Data Allergies/Adverse Reactions: Tetanus Vaccines and Toxoid [Tetanus Vaccines & Toxoid] Allergy (Severe, Verified 08/15/18 11:53) "PASSED OUT" UNSURE OF REACTION Penicillins Allergy (Intermediate, Verified 08/15/18 11:53) Hallucinations Past Medical History - General Information source: Patient - Social History Cigarette use (# per day): No - Quit smoking a few years ago. Chew tobacco use (# tins/day): No Frequency of alcohol use: None Drug Abuse: None - Past Medical History Cardiac Medical History: Denies: Hx Coronary Artery Disease, Hx Heart Attack Comment Only: Hx Hypertension - HYPOTENSION Pulmonary Medical History: Reports: Hx COPD - SMOKER, Hx Pneumonia - WALKING Denies: Hx Asthma, Hx Bronchitis Neurological Medical History: Denies: Hx Cerebrovascular Accident, Hx Seizures Renal/ Medical History: Denies: Hx Peritoneal Dialysis Musculoskeltal Medical History: Reports Hx Arthritis Psychiatric Medical History: Reports: Hx Depression Past Surgical History: Reports: Other - Hemorrhoidectomy - Immunizations Hx Diphtheria, Pertussis, Tetanus Vaccination: No Review of Systems - Review of Systems Constitutional: See HPI, Weakness Gastrointestinal: See HPI Physical Exam - Vital signs Vitals: Temp Pulse Resp BP Pulse Ox 97.6 F 106 H 16 106/73 91 L 08/15/18 12:10 08/15/18 12:10 08/15/18 12:10 08/15/18 12:10 08/15/18 12:10 - Notes Notes: Sitting in a wheelchair on oxygen no acute distress abdomen is soft, mild epigastric tenderness to palpation, normal bowel sounds Oral mucosa is dry. Course - Vital Signs Vital signs: Temp Pulse Resp BP Pulse Ox 97.6 F 106 H 16 106/73 91 L 08/15/18 12:10 08/15/18 12:10 08/15/18 12:10 08/15/18 12:10 08/15/18 12:10 Doctor's Discharge - Discharge Referrals: LUÍS WATERMAN MD [Primary Care Provider] - Follow up as needed
[2018-08-15 13:25] LABS: ABSOLUTE BASOPHILS # (AUTO) 0.1 10^3/uL (0.0-0.2); ABSOLUTE EOSINOPHILS # (AUTO) 0.1 10^3/uL (0.0-0.6); ABSOLUTE LYMPHOCYTES (AUTO) 2.3 10^3/uL (0.5-4.7); ABSOLUTE MONOCYTES (AUTO) 0.5 10^3/uL (0.1-1.4); ABSOLUTE NEUT (AUTO) 5.4 10^3/uL (1.7-8.2); EOSINOPHILS % (AUTO) 1.7 % (0-6); HEMATOCRIT 43.7 % (37.9-51.0); HEMOGLOBIN 14.5 g/dL (13.5-17.0); LYMPHOCYTES % (AUTO) 27.2 % (13-45); MEAN CORPUSCULAR HEMOGLOBIN 30.9 pg (27.0-33.4); MEAN CORPUSCULAR HGB CONC 33.3 g/dL (32.0-36.0); MEAN CORPUSCULAR VOLUME 93 fl (80-97); MONOCYTES % (AUTO) 5.8 % (3-13); PLATELET COUNT 617 10^3/uL (150-450); SEGMENTED NEUTROPHILS % (AUTO) 64.3 % (42-78); TOTAL CELLS COUNTED % (AUTO) 100 %; WHITE BLOOD COUNT 8.4 10^3/uL (4.0-10.5)
[2018-08-15 14:05] LABS: ALANINE AMINOTRANSFERASE 32 U/L (21-72); ALBUMIN 4.2 g/dL (3.5-5.0); ALKALINE PHOSPHATASE 163 U/L (38-126); ANION GAP 9 (5-19); ASPARTATE AMINO TRANSFERASE 34 U/L (17-59); BILIRUBIN,DIRECT 0.3 mg/dL (0.0-0.4); BILIRUBIN,TOTAL 0.4 mg/dL (0.2-1.3); BLOOD UREA NITROGEN 20 mg/dL (7-20); CALCIUM 10.2 mg/dL (8.4-10.2); CARBON DIOXIDE 30 mmol/L (22-30); CHLORIDE 108 mmol/L (98-107); GLUCOSE 132 mg/dL (75-110); LIPASE 58.6 U/L (23-300); POTASSIUM 5.9 mmol/L (3.6-5.0); SODIUM 146.8 mmol/L (137-145); TOTAL PROTEIN 7.8 g/dL (6.3-8.2)
[2018-08-15] MEDS ORDERED: MAG HYDROX/AL HYDROX/SIMETH SUSP 30 ML UDCUP PO ONE (15:44)
[2018-08-15] MEDS ORDERED: LIDOCAINE 2% VISCOUS SOLN 20 ML UDCUP PO ONE (15:44)
[2018-08-15] MEDS ORDERED: METOCLOPRAMIDE HCL ORAL SOLN 10 MG/10 ML UDCUP PO ONE (15:44)
--- NOTE | 2018-08-15 15:47 | ER Document Report ---
ED General - General Chief Complaint: Epigastric Pain Stated Complaint: ABDOMINAL PAIN Time Seen by Provider: 08/15/18 12:58 Mode of Arrival: Medic Information source: Patient Notes: 67-year-old male who with COPD, hypotension, depression, reported peptic ulcer presents with complaint of epigastric abdominal pain that started 10 days prior to arrival. Patient describes the pain is constant, gnawing and worse with food intake. He admits to nausea but denies vomiting. He has had some loose stools that he describes as black. Denies any iron supplementation or Pepto-Bismol intake. Patient did have a recent admission for similar symptoms and was discharged home on omeprazole. He states that he has been "taking it wrong according to Dr. Calvillo". He states that he is supposed to take the medication with food but has been not been doing so. Patient denies fever, chills, lower abdominal pain, chest pain, shortness of breath. Patient does report that he had an endoscopy and colonoscopy within the last year which he reports to be normal. TRAVEL OUTSIDE OF THE [place] IN LAST 30 DAYS: No - HPI Onset: Other Onset/Duration: Persistent Quality of pain: Achy Severity: Mild Associated symptoms: Diarrhea, Nausea. denies: Chest pain, Fever, Vomiting, Shortness of breath Exacerbated by: Food Relieved by: Denies Similar symptoms previously: Yes Recently seen / treated by doctor: Yes - Related Data Allergies/Adverse Reactions: Tetanus Vaccines and Toxoid [Tetanus Vaccines & Toxoid] Allergy (Severe, Verified 08/15/18 11:53) "PASSED OUT" UNSURE OF REACTION Penicillins Allergy (Intermediate, Verified 08/15/18 11:53) Hallucinations Past Medical History - General Information source: Patient - Social History Smoking Status: Former Smoker Cigarette use (# per day): No - Quit smoking a few years ago. Chew tobacco use (# tins/day): No Frequency of alcohol use: None Drug Abuse: None Lives with: Alone Family History: Hypertension Patient has suicidal ideation: No Patient has homicidal ideation: No - Past Medical History Cardiac Medical History: Denies: Hx Coronary Artery Disease, Hx Heart Attack Comment Only: Hx Hypertension - HYPOTENSION Pulmonary Medical History: Reports: Hx COPD - SMOKER, Hx Pneumonia - WALKING Denies: Hx Asthma, Hx Bronchitis Neurological Medical History: Denies: Hx Cerebrovascular Accident, Hx Seizures Renal/ Medical History: Denies: Hx Peritoneal Dialysis Musculoskeletal Medical History: Reports Hx Arthritis Psychiatric Medical History: Reports: Hx Depression Past Surgical History: Reports: Other - Hemorrhoidectomy - Immunizations Hx Diphtheria, Pertussis, Tetanus Vaccination: No Review of Systems - Review of Systems Notes: REVIEW OF SYSTEMS: CONSTITUTIONAL : Denies fever, chills, or sweats. Denies recent illness. Denies weight loss, recent hospitalizations. EENT: Denies visual changes, eye pain. Denies sore throat, oral lesions, difficulty swallowing. CARDIOVASCULAR: Denies chest pain. Denies palpitations. Denies lower extremity edema. RESPIRATORY: Denies cough. Denies shortness of breath, wheezing. GASTROINTESTINAL: Denies abdominal distention. Denies vomiting, Denies blood in vomitus, stools, or per rectum. Denies constipation. GENITOURINARY: Denies difficulty urinating, painful urination, frequency, blood in urine, testicular pain or penile discharge. MUSCULOSKELETAL: Denies back or neck pain or stiffness. Denies joint pain or swelling. SKIN: Denies rash, lesions or sores. HEMATOLOGIC : Denies easy bruising or bleeding. LYMPHATIC: Denies swollen glands. NEUROLOGICAL: Denies confusion or altered mental status. Denies loss of consciousness. Denies dizziness or lightheadedness. Denies headache. Denies weakness or paralysis. Denies problems difficulty with ambulation, slurred speech. Denies sensory loss, numbness, or tingling. Denies seizures. PSYCHIATRIC: Denies anxiety or stress. Denies depression, suicidal ideation, or Physical Exam - Vital signs Vitals: Temp Pulse Resp BP Pulse Ox 97.6 F 106 H 16 106/73 91 L 08/15/18 12:10 08/15/18 12:10 08/15/18 12:10 08/15/18 12:10 08/15/18 12:10 - Notes Notes: PHYSICAL EXAMINATION: GENERAL: Well-appearing, well-nourished and in no acute distress. HEAD: Atraumatic, normocephalic. EYES: Pupils equal round and reactive to light, extraocular movements intact, sclera anicteric, conjunctiva are normal. ENT: Nares patent, oropharynx clear without exudates. Moist mucous membranes. NECK: Normal range of motion, supple without lymphadenopathy LUNGS: Breath sounds clear to auscultation bilaterally and equal. No wheezes rales or rhonchi. HEART: Regular rate and rhythm without murmurs ABDOMEN: Soft, nontender, nondistended abdomen. No guarding, no rebound. No masses appreciated. Rectal: Dark stool, no active bleeding. Musculoskeletal: Normal range of motion, no pitting or edema. No cyanosis. NEUROLOGICAL: Cranial nerves grossly intact. Normal speech, normal gait. Normal sensory, motor exams PSYCH: Normal mood, normal affect. SKIN: Warm, Dry, normal turgor, no rashes or lesions noted. Course - Re-evaluation Re-evalutation: Laboratory 08/15/18 08/15/18 08/15/18 11:36 11:36 13:36 WBC 8.4 RBC 4.70 Hgb 14.5 Hct 43.7 MCV 93 MCH 30.9 MCHC 33.3 RDW 14.0 Plt Count 617 H Seg Neutrophils % 64.3 Lymphocytes % 27.2 Monocytes % 5.8 Eosinophils % 1.7 Basophils % 1.0 Absolute Neutrophils 5.4 Absolute Lymphocytes 2.3 Absolute Monocytes 0.5 Absolute Eosinophils 0.1 Absolute Basophils 0.1 Sodium Cancelled 146.8 H Potassium Cancelled 5.9 H Chloride Cancelled 108 H Carbon Dioxide Cancelled 30 Anion Gap Cancelled 9 BUN Cancelled 20 Creatinine Cancelled 0.88 Est GFR ( Amer) Cancelled > 60 Est GFR (Non-Af Amer) Cancelled > 60 Glucose Cancelled 132 H Calcium Cancelled 10.2 Total Bilirubin Cancelled 0.4 Direct Bilirubin Cancelled 0.3 Neonat Total Bilirubin Cancelled Not Reportable Neonat Direct Bilirubin Cancelled Not Reportable Neonat Indirect Bili Cancelled Not Reportable AST Cancelled 34 ALT Cancelled 32 Alkaline Phosphatase Cancelled 163 H Total Protein Cancelled 7.8 Albumin Cancelled 4.2 Lipase Cancelled 58.6 Stool Occult Blood 08/15/18 15:45 WBC RBC Hgb Hct MCV MCH MCHC RDW Plt Count Seg Neutrophils % Lymphocytes % Monocytes % Eosinophils % Basophils % Absolute Neutrophils Absolute Lymphocytes Absolute Monocytes Absolute Eosinophils Absolute Basophils Sodium Potassium Chloride Carbon Dioxide Anion Gap BUN Creatinine Est GFR ( Amer) Est GFR (Non-Af Amer) Glucose Calcium Total Bilirubin Direct Bilirubin Neonat Total Bilirubin Neonat Direct Bilirubin Neonat Indirect Bili AST ALT Alkaline Phosphatase Total Protein Albumin Lipase Stool Occult Blood NEGATIVE Abdomen Ultrasound 08/15/18 15:39 IMPRESSION: 1. There are 2 large hepatic cysts that contain debris that is layered out. May suggest prior hemorrhage. 2. There is some gallbladder sludge. Temp Pulse Resp BP Pulse Ox 98.0 F 80 21 H 123/78 97 08/15/18 19:57 08/15/18 16:37 08/15/18 20:01 08/15/18 20:01 08/15/18 20:01 67-year-old male reports epigastric abdominal pain, associated nausea without vomiting. Vital signs stable upon arrival. Patient does have reproducible epigastric and right upper quadrant tenderness on exam. Previous nursing notes and medical records reviewed. CBC is without leukocytosis or anemia. CMP does show mild elevation in LFTs with appears to be the patient's baseline. Lipase within normal limits. Stool is negative for blood. Patient did receive a GI cocktail and has tolerated fluids during his ED course. Right upper quadrant ultrasound does show gallbladder sludge and hepatic cysts. 08/15/18 19:35 Patient reports that he is aware of his hepatic cyst. He states that they have been evaluated several times and when I told him the size he stated that it has not grown. Patient is tolerating fluids. No evidence of pancreatitis, cholecystitis. Patient was evaluated and treated as appropriate for the patient's presenting symptoms and complaint, with consideration of any critical or life threatening conditions that may be associated with their obtained history and exam as noted above. All results were discussed with patient. Patient provided the opportunity to ask questions, and express concerns. Patient was educated on treatments based on their presumed diagnosis as noted above. At this time we will discharge the patient with return precautions and follow-up recommendations. Verbal discharge instructions given a the bedside. Medication warnings reviewed. Patient is in agreement with this plan and has verbalized understanding of return precautions. After careful consideration I feel that that patient can be safely discharged from the emergency department, they were advised to followup with a primary care physician in 2-3 days. Dictation on this chart was performed using voice recognition software and may result in unintended grammatical, spelling, syntax or errors. 08/16/18 02:52 - Vital Signs Vital signs: Temp Pulse Resp BP Pulse Ox 98.0 F 80 21 H 123/78 97 08/15/18 19:57 08/15/18 16:37 08/15/18 20:01 08/15/18 20:01 08/15/18 20:01 - Laboratory Result Diagrams: 08/15/18 11:36 08/15/18 13:36 Laboratory results interpreted by me: 08/15/18 08/15/18 11:36 13:36 Plt Count 617 H Sodium 146.8 H Potassium 5.9 H Chloride 108 H Glucose 132 H Alkaline Phosphatase 163 H - Diagnostic Test Radiology reviewed: Image reviewed, Reports reviewed Discharge - Discharge Clinical Impression: Epigastric abdominal pain, Hepatic cyst, Nausea, Biliary colic Abdominal pain Qualifiers: Abdominal location: epigastric Qualified Code(s): R10.13 - Epigastric pain Condition: Good Disposition: HOME, SELF-CARE Instructions: Abdominal Pain ([facility]), Antinausea Medication ([facility]), Evaluation of Upper Abdominal Pain ([facility]), Pain Medication Injection ([facility]) Additional Instructions: Your ultrasound today shows that you have cysts on your liver. It also shows that you have sludge in your gallbladder which can contribute to your epigastric abdominal pain when eating certain foods. I have provided copies of your imaging that was performed today as well as your blood work so that you can bring it to your primary care physician Dr. Dowell. Please take your reflux medication as prescribed. Follow up with your [id number] hours for further care or return to the ED IMMEDIATELY if symptoms worsen or you have any concerns. If you cannot afford to follow up with your primary care physician a list of low cost clinics have been provided at the end of your discharge papers as well. Most prescribed medications have multiple side effects. The safest thing to do is when filling your prescription speak to your pharmacist regarding possible interactions with your normal home medications and over the counter medications such as Ibuprofen, Tylenol, Benadryl. If you experience any symptoms that cause you discomfort or concern you should discontinue the medication immediately and return to the emergency room or call your primary care physician. Prescriptions: Ondansetron [Zofran Odt 4 mg Tablet] 1 tab PO Q4H PRN #15 tab.rapdis PRN Reason: For Nausea/Vomiting Forms: Smoking Cessation Education Referrals: LUÍS DOWELL MD [Primary Care Provider] - Follow up as needed
[2018-08-15] MEDS ORDERED: NORMAL SALINE 1000 ML 1,000 ML IV ONE (15:49)
--- NOTE | 2018-08-15 19:09 | EKG REPORT ---
SEVERITY:- ABNORMAL ECG - SINUS TACHYCARDIA LEFT POSTERIOR FASCICULAR BLOCK : Confirmed by: Mic Chaudhary 15-Aug-2018 19:08:47
--- NOTE | 2018-08-15 19:13 | RADIOLOGY REPORT (SQ) ---
EXAM DESCRIPTION: U/S ABDOMEN LIMITED W/O DOP COMPLETED DATE/TIME: 08/15/2018 6:38 pm REASON FOR STUDY: Epigastric and right upper quadrant abdominal pain COMPARISON: To TECHNIQUE: Dynamic and static grayscale images acquired of the abdomen and recorded on PACS. Jerome reyes selected color Doppler and spectral images recorded. LIMITATIONS: None. FINDINGS: PANCREAS: Poorly seen. LIVER: Increased echogenicity. There are 2 large cysts. The larger measures 9 cm. The smaller sharon ures 7.3 cm. Debris is present in each of these. LIVER VASCULATURE: Normal directional flow of the main portal vein and hepatic veins. GALLBLADDER: No stones. There is some sludge. There is no wall thickening. ULTRASOUND-DETECTED OLMOS'S SIGN: Negative. INTRAHEPATIC DUCTS AND COMMON DUCT: CBD and intrahepatic ducts normal caliber. No filling defects. INFERIOR VENA CAVA: Not imaged. AORTA: No aneurysm. RIGHT KIDNEY: Normal size, 11.1 cm. Normal echogenicity. No solid or suspicious masses. No hydroneph rosis. No calcifications. PERITONEAL AND RIGHT PLEURAL SPACE: No ascites or effusions. OTHER: No other significant findings. IMPRESSION: 1. There are 2 large hepatic cysts that contain debris that is layered out. May sugges t prior hemorrhage. 2. There is some gallbladder sludge. TECHNICAL DOCUMENTATION: JOB ID: [id number] [employer]- All Rights Reserved Reading location - IP/workstation name: [email or web address]
[2018-08-15] MEDS ORDERED: ONDANSETRON HCL INJ/PF 4 MG/2 ML SDV IV ONE (19:32)
[2018-08-15 20:08] VITALS: BP 123/78
== END 2018-08-15 20:08 | disposition home or self-care (01) ==
LOC: ER 11:52
DX: R10.13 Epigastric pain (principal); J44.9 Chronic obstructive pulmonary disease, unspecified; K76.89 Other specified diseases of liver; R11.0 Nausea; K80.50 Calculus of bile duct without cholangitis or cholecystitis without obstruction; Z88.0 Allergy status to penicillin; Z88.7 Allergy status to serum and vaccine; Z87.891 Personal history of nicotine dependence
CPT/HCPCS: 93005; 99285; 96361; 96374; 36415; 83690; 85025; 82272; 80053; 76705; 93010; J3490; A9270; J2405; J7030

== ENCOUNTER 2018-09-14 10:40 | Emergency (ER) | payer MEDICARE, MEDICAID ==
[2018-09-14] MEDS ORDERED: NORMAL SALINE 1000 ML 1,000 ML IV ONE ×2 (11:18→12:47)
[2018-09-14 11:48] LABS: VENOUS BLOOD BASE EXCESS -0.6 mmol/L; VENOUS BLOOD HCO3 24.9 mmol/L (20-32); VENOUS BLOOD PCO2 43.7 mmHg (35-63); VENOUS BLOOD PH 7.37 (7.30-7.42)
[2018-09-14 11:50] LABS: ABSOLUTE EOSINOPHILS # (AUTO) 0.3 10^3/uL (0.0-0.6); ABSOLUTE LYMPHOCYTES (AUTO) 2.1 10^3/uL (0.5-4.7); ABSOLUTE MONOCYTES (AUTO) 0.5 10^3/uL (0.1-1.4); ABSOLUTE NEUT (AUTO) 2.6 10^3/uL (1.7-8.2); BASOPHILS % (AUTO) 0.9 % (0-2); EOSINOPHILS % (AUTO) 6.1 % (0-6); HEMATOCRIT 39.1 % (37.9-51.0); HEMOGLOBIN 13.2 g/dL (13.5-17.0); LYMPHOCYTES % (AUTO) 37.1 % (13-45); MEAN CORPUSCULAR HEMOGLOBIN 31.4 pg (27.0-33.4); MEAN CORPUSCULAR HGB CONC 33.7 g/dL (32.0-36.0); MEAN CORPUSCULAR VOLUME 93 fl (80-97); MONOCYTES % (AUTO) 9.5 % (3-13); PLATELET COUNT 282 10^3/uL (150-450); RED CELL DISTRIBUTION WIDTH 14.6 % (11.5-14.0); SEGMENTED NEUTROPHILS % (AUTO) 46.4 % (42-78); TOTAL CELLS COUNTED % (AUTO) 100 %; WHITE BLOOD COUNT 5.5 10^3/uL (4.0-10.5)
[2018-09-14 11:55] LABS: INTERNATIONAL RATION (INR) 0.92; PROTHROMBIN TIME 12.8 SEC (11.4-15.4)
[2018-09-14 12:09] LABS: ALANINE AMINOTRANSFERASE 37 U/L (21-72); ALBUMIN 3.3 g/dL (3.5-5.0); ALKALINE PHOSPHATASE 103 U/L (38-126); ASPARTATE AMINO TRANSFERASE 23 U/L (17-59); BILIRUBIN,DIRECT 0.1 mg/dL (0.0-0.4); BILIRUBIN,TOTAL 0.2 mg/dL (0.2-1.3); BLOOD UREA NITROGEN 17 mg/dL (7-20); GLUCOSE 117 mg/dL (75-110); POTASSIUM 4.7 mmol/L (3.6-5.0); TOTAL PROTEIN 5.8 g/dL (6.3-8.2)
[2018-09-14 12:14] LABS: CARBON DIOXIDE 27 mmol/L (22-30); CHLORIDE 107 mmol/L (98-107); SODIUM 138.2 mmol/L (137-145)
[2018-09-14 12:21] LABS: ANION GAP 4 (5-19)
--- NOTE | 2018-09-14 12:51 | RADIOLOGY REPORT (SQ) ---
EXAM DESCRIPTION: CHEST 2 VIEWS COMPLETED DATE/TIME: 09/14/2018 12:34 pm REASON FOR STUDY: snycope COMPARISON: CT chest 08/05/2018, 10/10/2017 Chest films 08/05/2018, 12/22/2016 EXAM PARAMETERS: NUMBER OF VIEWS: two views TECHNIQUE: Digital Frontal and Lateral radiographic views of the chest acquired. RADIATION DOSE: NA LIMITATIONS: none FINDINGS: LUNGS AND PLEURA: Lungs are hyperinflated and hyperlucent from obstructive disease. Stapl es right lower lobe from resection of a large bulla or bleb in the past. Bibasilar bandlike scarring is present. No pleural effusion. No pneumothorax. No pulmonary vascular congestion or Julián lines. MEDIASTINUM AND HILAR STRUCTURES: No masses or contour abnormalities. HEART AND VASCULAR STRUCTURES: Heart normal size. No evidence for failure. BONES: No acute findings. HARDWARE: None in the chest. OTHER: No other significant finding. IMPRESSION: Obstructive lung disease with old nora at the right lung base post resection of a bul la or bleb. No acute findings TECHNICAL DOCUMENTATION: JOB ID: [id number]- All Rights Reserved Reading location - IP/workstation name: [email or web address]
--- NOTE | 2018-09-14 14:39 | ER Document Report ---
ED General - General Chief Complaint: Syncope Stated Complaint: SYNCOPE Time Seen by Provider: 09/14/18 11:13 Primary Care Provider: LUÍS WATERMAN MD [Primary Care Provider] - Follow up as needed TRAVEL OUTSIDE OF THE [place] IN LAST 30 DAYS: No - HPI Patient complains to provider of: Syncope Notes: Patient coming in for evaluation of syncope. Patient states he was at the pain management clinic today when he felt like he was going to pass out and then did pass out. Patient states he normally is a little lightheaded throughout the day patient states decreased p.o. intake stating that "I do not feel like eating or drinking". Patient otherwise denies any pain denies any chest pain abdominal pain fevers chills nausea vomiting diarrhea. Patient resting comfortably my evaluation with hypotension on the monitor. - Related Data Allergies/Adverse Reactions: Tetanus Vaccines and Toxoid [Tetanus Vaccines & Toxoid] Allergy (Severe, Verified 08/15/18 11:53) "PASSED OUT" UNSURE OF REACTION Penicillins Allergy (Intermediate, Verified 08/15/18 11:53) Hallucinations Past Medical History - Social History Smoking Status: Former Smoker Chew tobacco use (# tins/day): No Frequency of alcohol use: None Drug Abuse: None Family History: Hypertension Patient has suicidal ideation: No Patient has homicidal ideation: No - Past Medical History Cardiac Medical History: Denies: Hx Coronary Artery Disease, Hx Heart Attack Comment Only: Hx Hypertension - HYPOTENSION Pulmonary Medical History: Reports: Hx COPD - SMOKER, Hx Pneumonia - WALKING Denies: Hx Asthma, Hx Bronchitis Neurological Medical History: Denies: Hx Cerebrovascular Accident, Hx Seizures Renal/ Medical History: Denies: Hx Peritoneal Dialysis Musculoskeletal Medical History: Reports Hx Arthritis Psychiatric Medical History: Reports: Hx Depression Past Surgical History: Reports: Other - Hemorrhoidectomy - Immunizations Hx Diphtheria, Pertussis, Tetanus Vaccination: No Review of Systems - Review of Systems Constitutional: No symptoms reported EENT: No symptoms reported Cardiovascular: Syncope Respiratory: No symptoms reported Gastrointestinal: No symptoms reported Genitourinary: No symptoms reported Male Genitourinary: No symptoms reported Musculoskeletal: No symptoms reported Skin: No symptoms reported Hematologic/Lymphatic: No symptoms reported Neurological/Psychological: No symptoms reported -: Yes All other systems reviewed and negative Physical Exam - Vital signs Vitals: Resp Pulse Ox 11 L 93 09/14/18 10:53 09/14/18 10:53 Interpretation: Hypotensive - General General appearance: Appears well, Alert - HEENT Head: Normocephalic, Atraumatic Eyes: Normal Pupils: PERRL - Respiratory Respiratory status: No respiratory distress Chest status: Nontender Breath sounds: Normal Chest palpation: Normal - Cardiovascular Rhythm: Regular Heart sounds: Normal auscultation Murmur: No - Abdominal Inspection: Normal Distension: No distension Bowel sounds: Normal Tenderness: Nontender Organomegaly: No organomegaly - Back Back: Normal, Nontender - Extremities General upper extremity: Normal inspection, Nontender, Normal color, Normal ROM, Normal temperature General lower extremity: Normal inspection, Nontender, Normal color, Normal ROM, Normal temperature, Normal weight bearing. No: Kai's sign - Neurological Neuro grossly intact: Yes Cognition: Normal Orientation: AAOx4 Stigler Coma Scale Eye Opening: Spontaneous Lane Coma Scale Verbal: Oriented Stigler Coma Scale Motor: Obeys Commands Lane Coma Scale Total: 15 Speech: Normal Motor strength normal: LUE, RUE, LLE, RLE Sensory: Normal - Psychological Associated symptoms: Normal affect, Normal mood - Skin Skin Temperature: Warm Skin Moisture: Dry Skin Color: Normal Course - Re-evaluation Re-evalutation: 09/14/18 15:32 Patient remained hypotensive however improvement after 2 L of fluid. Finally after 2 L of fluid patient was able to produce a urine sample. Patient otherwise has no acute findings on his chest x-ray or laboratory studies. Orthostatics were performed with patient having no significant symptoms. Patient stated he was feeling much better and states he feels good to be discharged home. More likely patient had a syncopal episode due to hypotension due to the underlying dehydration. Patient was educated at length on proper hydration techniques. - Vital Signs Vital signs: Temp Pulse Resp BP Pulse Ox 77 23 H 112/83 93 09/14/18 14:17 09/14/18 14:14 09/14/18 14:17 09/14/18 14:14 - Laboratory Result Diagrams: 09/14/18 11:34 09/14/18 11:34 Laboratory results interpreted by me: 09/14/18 09/14/18 11:34 11:34 RBC 4.20 L Hgb 13.2 L RDW 14.6 H Eosinophils % 6.1 H Anion Gap 4 L Glucose 117 H Total Protein 5.8 L Albumin 3.3 L Discharge - Discharge Clinical Impression: Dehydration Syncope Qualifiers: Syncope type: unspecified Qualified Code(s): R55 - Syncope and collapse Condition: Good Disposition: HOME, SELF-CARE Instructions: Dehydration ([facility]), Syncopal Episode ([facility]) Additional Instructions: Laboratory evaluation does not show any critical pathology I do believe your syncopal episode today was due to underlying dehydration as that her blood pressure was low upon initial arrival after 2 bags of fluid your blood pressure has improved you have improved with your symptoms. Please make sure you stay well-hydrated drinking plenty of fluids throughout the day return to ER symptoms worsen please avoid any strenuous physical activity for the next 48 hours Referrals: LUÍS WATERMAN MD [Primary Care Provider] - Follow up as needed
[2018-09-14 14:52] VITALS: BP 114/75
--- NOTE | 2018-09-14 23:00 | EKG REPORT ---
SEVERITY:- OTHERWISE NORMAL ECG - SINUS RHYTHM BORDERLINE LEFT AXIS DEVIATION LOW VOLTAGE IN FRONTAL LEADS : Confirmed by: Mariola Jeronimo MD 14-Sep-2018 22:59:17
== END 2018-09-14 15:05 | disposition home or self-care (01) ==
LOC: ER 10:40
DX: E86.0 Dehydration (principal); R55 Syncope and collapse; Z87.891 Personal history of nicotine dependence
CPT/HCPCS: 93005; 99284; 96360; 96361; 36415; 87040; 82962; 83735; 85025; 85610; 80053; 84484; 82803; 83605; 71046; 93010; J7030

== ENCOUNTER 2019-02-06 07:59 | Day surgery (SDC) | payer OTHER, MEDICARE, MEDICAID ==
[~2019-02-06 07:59] MED LIST changes: -ALBUTEROL SULFATE 0.083% NEB 2.5 MG/3 ML AMPUL NEB ONE; +DIPHENHYDRAMINE HCL 50 MG/ML VIAL ONE; +EPINEPHRINE INJ 1 MG/10 ML DISP.SYRIN ONE; +FLUMAZENIL INJ 0.5 MG/5 ML VIAL ONE; +GLUCAGON,HUMAN RECOMB 1 MG INJ ONE; +NALOXONE HCL INJ/PF 0.4 MG/1 ML SDV ONE; +ONDANSETRON HCL INJ/PF 4 MG/2 ML SDV ONE
[2019-02-06] MEDS: MIDAZOLAM 2 MG/2 ML INJ ONE ×2 (08:37→08:45)
[2019-02-06] MEDS: FENTANYL CITRATE INJ/PF 100 MCG/2 ML AMPUL ONE ×2 (08:41→08:43)
--- NOTE | 2019-02-06 08:51 | Operative Report ---
Operative Report DATE OF SURGERY: 02/06/19 Operative Report: The risks benefits and alternatives of the procedure explained to the patient in detail and informed consent is obtained.A GIF Olympus video scope was inserted into the patient's mouth and hypopharynx ,the esophagus is identified intubated and insufflated, the scope was then advanced through the esophagus stomach and duodenum, retroflexion maneuver is done ,the esophagus stomach and first and second portions of the duodenum examined PREOPERATIVE DIAGNOSIS: Dyspepsia POSTOPERATIVE DIAGNOSIS: Gastritis status post biopsy without Helicobacter pylori. Small hiatal hernia. Duodenitis. Residual bile noted in the stomach OPERATION: EGD with biopsy SURGEON: AL NICHOLAS ANESTHESIA: Moderate Sedation - 4 mg of Versed, 50 mcg of fentanyl. Conscious sedation monitoring time 30 minutes. TISSUE REMOVED OR ALTERED: As noted above. COMPLICATIONS: None. ESTIMATED BLOOD LOSS: None. INTRAOPERATIVE FINDINGS: As noted above. PROCEDURE: Patient tolerated the procedure well. No immediate postprocedure complications are noted. Patient is discharged in good condition. Discharge date 02/06/2019. Discharge diet: Regular. Discharge activity: Regular. 2 to 3-week follow-up to discuss findings. Patient is instructed to call the office or proceed to the emergency room should there be any further questions. Wait on the pathology.
[2019-02-06 09:51] VITALS: BP 94/63
== END 2019-02-06 09:54 | disposition home or self-care (01) ==
LOC: END 07:59
PROVIDERS: ATTEND Internal Medicine Gastroenterology
PROC: 0DB68ZX Excision of Stomach, Via Natural or Artificial Opening Endoscopic, Diagnostic (ICD-10-PCS; principal; 2019-02-06 08:30)
DX: K29.50 Unspecified chronic gastritis without bleeding (principal); K29.80 Duodenitis without bleeding; K44.9 Diaphragmatic hernia without obstruction or gangrene
CPT/HCPCS: 43239; 88342 ×2; 88305 ×2; J2250; J3010; J0171; J1200; J1610; J2310; J2405; J3490

== ENCOUNTER → 2019-09-04 | Outpatient (CLI) | payer OTHER ==
--- NOTE | 2019-09-04 13:01 | RADIOLOGY REPORT (SQ) ---
EXAM DESCRIPTION: CT CHEST WITHOUT COMPLETED DATE/TIME: 09/04/2019 9:32 am REASON FOR STUDY: R91.1 SOLITARY PULMONARY NODULE R91.1 SOLITARY PULMONARY NODULE COMPARISON: CT chest 10/10/2017, 08/05/2018 TECHNIQUE: CT scan performed of the chest without intravenous contrast. Images reviewed with lung, soft tissue and bone windows. Reconstructed coronal and sagittal MPR images reviewed. All images st ored on PACS. All CT scanners at this facility use dose modulation, iterative reconstruction, and/or weight based d osing when appropriate to reduce radiation dose to as low as reasonably achievable (ALARA). [facility]: Dose Right [facility]: CareDose [facility]: Dose Right [facility]: Teradose 4D [facility]: Smart [place] RADIATION DOSE: CT Rad equipment meets quality standard of care and radiation dose reduction techniq ues were employed. CTDIvol: 9.2 mGy. DLP: 414 mGy-cm. mGy. LIMITATIONS: No technical limitations. FINDINGS: LUNGS AND PLEURA: End-stage appearance of obstructive lung disease. A row of surgical sta ples is present in the right lower lobe post partial resection along the major and minor fissure. No worrisome pulmonary nodules. No acute infiltrates. No pleural effusion. No pneumothorax. HILAR AND MEDIASTINAL STRUCTURES: No identified masses or abnormal nodes. No obvious aneurysm. HEART AND VASCULAR STRUCTURES: No aneurysm. No pericardial effusion. UPPER ABDOMEN: 2 cm cyst subdiaphragmatic right lobe liver, 8 cm cyst left lobe liver near the falcif orm ligament, 7 cm cyst caudate lobe liver. 3 cm cyst right mid-pole kidney. 5.6 cm cyst left mid pole kidney. THYROID AND OTHER SOFT TISSUES: No masses. No adenopathy. BONES: No significant finding. HARDWARE: None in the chest. OTHER: No other significant findings. IMPRESSION: Obstructive lung disease Prior resection of a large bulla or bleb along the right major and minor fissures. TECHNICAL DOCUMENTATION: JOB ID: [id number] Quality ID # [id number]: Final reports with documentation of one or more dose reduction techniques (e.g., Au tomated exposure control, adjustment of the mA and/or kV according to patient size, use of iterative reconstruction technique) 2010 [employer]- All Rights Reserved Reading location - IP/workstation name: [email or web address]
== END ==
LOC: RAD 08:54
PROVIDERS: ATTEND Internal Medicine Pulmonary Disease
DX: R91.1 Solitary pulmonary nodule (principal)
CPT/HCPCS: 71250